=== PATIENT | female | born 1990 | race African-American/Black ===

== ENCOUNTER 2016-04-08 11:04 | Emergency (ER) | payer MEDICAID, OTHER ==
[~2016-04-08] VITALS: Ht 170.2 cm; Wt 150.0 kg
[~2016-04-08 11:04] MED LIST: CIPR-9 PO; CIPR0.3S LEFT EAR; IBUP-232 PO
[2016-04-08 11:06] VITALS: BP 165/83; PULSE 92; RESP 16; TEMP 98; O2SAT 98
[2016-04-08] MEDS ORDERED: CORT1SOL LEFT EAR (12:15)
--- NOTE | 2016-04-08 12:16 | PD ---
HPI Chief Complaint: ENT Complaint Time Seen by Provider: 12:15 Travel History International Travel<30 days: No Contact w/Intl Traveler<30days: No Traveled to known affect area: No History of Present Illness HPI 26-year-old female with history of chronic, recurrent left otitis externa presents to emergency department requesting a different antibiotic drop. Patient states that she gets her medications through the homeless: [facility] and the antibiotic previously prescribed, Ciprodex is over $200. Patient states she cannot afford this. She is requesting something $24 or less. She denies any pain at this time. States that she did see the nurse at the [facility] who stated that she should have this filled. Denies fever or chills. She has no symptoms to report. PFSH Past Medical History Asthma: Yes ( A CHILD) Bipolar Disorder: Yes Cancer: No Cardiovascular Problems: No Developmental Delay: No Diabetes: No Diminished Hearing: No Headaches: No Psychiatric: No Immunizations Current: Yes Seizures: No ?: Not LMP: 01/09/16 : 0 Para: 0 Miscarriage: 0 : 0 Social History Alcohol Use: Yes ([facility]) Tobacco Use: No Substance Use: No Allergies-Medications (Allergen,Severity, Reaction): Coded Allergies: No Known Allergies (Verified , 03/26/16) Reported Meds & Prescriptions Reported Meds & Active Scripts Active Cortisporin HC Otic Drops (Utaceres-Qwhddrjov-NN Otic Drops) 3.5-10,000-1 Mg- Units-% Soln 4 Drop LEFT EAR QID Ibuprofen 600 Mg Tab 600 Mg PO Q6H PRN Ciprodex Otic Drops (Ciprofloxacin-Dexamethasone Otic Drops) 0.3-0.1% Susp 4 Drop LEFT EAR BID Cipro (Ciprofloxacin HCl) 500 Mg Tab 500 Mg PO BID Review of Systems Except as stated in HPI: all other systems reviewed are Neg Physical Exam Narrative GENERAL: Well-nourished, well-developed male patient in no acute distress SKIN: Warm and dry. HEAD: Normocephalic. Traumatic. No mastoid tenderness EARS: Bilateral pinnae within normal limits. Patient has flaking and mild edema of the bilateral external canals, greater on the left than the right Bilateral tympanic membranes without erythema, dullness or perforation. EYES: No scleral icterus. No injection or drainage. ENT: Mucosa pink and moist. No erythema or exudates. No uvular edema. No uvular , palatal, or tonsillar deviation. Airway patent. Nasal turbinates appear normal without nasal blood, purulent drainage or septal hematoma. NECK: Supple, trachea midline. No JVD or lymphadenopathy. CARDIOVASCULAR: Regular rate and rhythm without murmurs, gallops, or rubs. RESPIRATORY: Breath sounds equal bilaterally. No accessory muscle use. Data Data Last Documented VS Vital Signs Date Time Temp Pulse Resp B/P Pulse Ox O2 Delivery O2 Flow Rate FiO2 04/08/16 11:06 98.0 92 16 165/83 98 MDM Medical Decision Making Medical Screen Exam Complete: Yes Emergency Medical Condition: Yes Medical Record Reviewed: Yes Differential Diagnosis Otitis externa versus otitis media versus recurrent otitis versus psoriasis versus dermatitis Narrative Course 26 year-old female presents to [facility] department requesting a different prescription for otitis externa that is affordable. Patient is given a prescription for Cortisporin otic. She is instructed to follow-up with primary care and return immediately with any acute worsening symptoms. Diagnosis Primary Impression: Chronic otitis externa of left ear Qualified Code: H60.62 - Chronic otitis externa of left ear, unspecified type Referrals: Ear / Nose / Throat Specialist Primary Care Physician Patient Instructions: General Instructions, Otitis Externa (ED) Additional Instructions: Avoid water submersion No foreign bodies in your ears Do not use Q-tips Return immediately to the emergency department with any acute worsening symptoms Med/Other Pt SpecificInfo: Prescription(s) given Scripts Pndwlfuq-Triviefvs-DL Otic Drops (Cortisporin HC Otic Drops)3.5-10,000-1 Mg- Units-% Soln4 Drop LEFT EAR QID #1 BOTTLE Ref 0 Prov:Mikki Curry 04/08/16 Disposition: 01 DISCHARGE HOME Condition: Stable Mikki Curry Apr 08, 2016 12:16
[2016-08-25] MEDS ORDERED: RISP0.5T2 PO (09:26)
[2016-08-25] MEDS ORDERED: TRAZ50TA12 PO (09:26)
[2016-09-01] MEDS ORDERED: GYNE3CRE VAGINAL (09:45)
[2016-09-14] MEDS ORDERED: CLOT1CRE23 VAGINAL (16:50)
== END 2016-04-08 12:42 | disposition home or self-care (01) ==
LOC: NETRI 11:04
DX: H60.62 Unspecified chronic otitis externa, left ear (principal); Z87.09 Personal history of other diseases of the respiratory system; Z86.59 Personal history of other mental and behavioral disorders
CPT/HCPCS: 99282

== ENCOUNTER 2016-05-06 08:42 | Emergency (ER) | payer OTHER ==
[~2016-05-06] VITALS: Ht 170.2 cm; Wt 155.0 kg
[~2016-05-06 08:42] MED LIST changes: +CORT1SOL LEFT EAR
[2016-05-06 08:44] VITALS: BP 130/72; PULSE 84; RESP 20; TEMP 98; O2SAT 95
[2016-05-06 10:30] VITALS: BP_SYST 103; BP_SYST 106; BP_SYST 95; BP_DIAS 54; BP_DIAS 58; BP_DIAS 59; RESP 18
--- NOTE | 2016-05-06 10:59 | PD ---
HPI . Lesion on her right ear and abdominal pain Chief Complaint: Specifications Checker Problem/Complaint Time Seen by Provider: 10:19 Travel History International Travel<30 days: No Contact w/Intl Traveler<30days: No Traveled to known affect area: No History of Present Illness HPI Patient presents with 2 complaints. The first is a lesion on her right ear. The second is some lower abdominal pain. She reports constipation. Is requesting a prescription for a laxative. She also states that she's been having a menstrual cycle for several months. [facility] Past Medical History Asthma: Yes ( A CHILD) Bipolar Disorder: Yes Cancer: No Cardiovascular Problems: No Developmental Delay: No Diabetes: No Diminished Hearing: No Headaches: No Psychiatric: Yes Immunizations Current: Yes Seizures: No Tetanus Vaccination: < 5 Years ?: Unknown LMP: 01/09/16 : 0 Para: 0 Miscarriage: 0 : 0 Past Surgical History Surgical History: No Previous Surgery Social History Alcohol Use: Yes ([facility]) Tobacco Use: No Substance Use: No Allergies-Medications (Allergen,Severity, Reaction): Coded Allergies: No Known Allergies (Verified , 05/06/16) Reported Meds & Prescriptions Reported Meds & Active Scripts Active No Active Prescriptions or Reported Medications Review of Systems Except as stated in HPI: all other systems reviewed are Neg General / Constitutional: No: Fever, Chills Gastrointestinal: Positive: Abdominal Pain, Constipation, No: Nausea, Vomiting , Diarrhea Genitourinary: Positive: Menorrhagia, Metorrhagia, Vaginal Bleeding Skin: Positive Lumps (on her right earlobe) Physical Exam Narrative GENERAL: This patient is smiling and using her cell phone and in no distress at all. SKIN: Warm and dry. She has a keloid on her right earlobe. HEAD: Atraumatic. Normocephalic. EYES: Pupils equal and round. ENT: No nasal bleeding or discharge. Mucous membranes pink and moist. NECK: Trachea midline. CARDIOVASCULAR: Regular rate and rhythm. RESPIRATORY: No accessory muscle use. GASTROINTESTINAL: Abdomen soft, non-tender, nondistended. MUSCULOSKELETAL: No obvious deformities. No edema. NEUROLOGICAL: Awake and alert. No obvious cranial nerve deficits. Motor grossly within normal limits. Normal speech. PSYCHIATRIC: Appropriate mood and affect; insight and judgment normal. Data Data Last Documented VS Vital Signs Date Time Temp Pulse Resp B/P Pulse Ox O2 Delivery O2 Flow Rate FiO2 05/06/16 10:30 78 18 95/58 103/54 106/59 05/06/16 08:44 98.0 95 Room Air Orders Ed Urine Pregnancytest Poc (05/06/16 10:20) Orthostatic Vital Signs (05/06/16 10:21) MDM Medical Decision Making Medical Screen Exam Complete: Yes Emergency Medical Condition: Yes Differential Diagnosis Differential diagnosis of abdominal pain includes but is not limited to gastritis, pancreatitis, hepatitis, gastroenteritis, gallbladder disease, constipation, urinary retention, UTI, peptic ulcer disease, diverticulitis or appendicitis Narrative Course Patient presents for evaluation of a lesion on her right earlobe and of abdominal pain. Her hCG is negative. She reports constipation. I will recommend that she take milk of magnesia. The lesion on her earlobe is a keloid. Diagnosis Primary Impression: Abdominal pain Qualified Code: R10.84 - Generalized abdominal pain Additional Impressions: Constipation Qualified Code: K59.00 - Constipation, unspecified constipation type Menometrorrhagia Keloid of skin Additional Instructions: Take milk of magnesia for constipation. Follow up with your primary care provider for all of your other complaints. Scripts No Active Prescriptions or Reported Meds Disposition: 01 DISCHARGE HOME Condition: Stable Jennifer Taylor MD May 06, 2016 10:59
[2016-05-06 11:05] VITALS: BP 106/60; TEMP 97.8
[2016-08-25] MEDS ORDERED: RISP0.5T2 PO (09:26)
[2016-08-25] MEDS ORDERED: TRAZ50TA12 PO (09:26)
[2016-09-01] MEDS ORDERED: GYNE3CRE VAGINAL (09:45)
[2016-09-14] MEDS ORDERED: CLOT1CRE23 VAGINAL (16:50)
== END 2016-05-06 11:05 | disposition home or self-care (01) ==
LOC: NEPB 08:42
DX: R10.84 Generalized abdominal pain (principal); L91.0 Hypertrophic scar; N92.1 Excessive and frequent menstruation with irregular cycle
CPT/HCPCS: 84703; 99283

== ENCOUNTER 2016-08-03 19:32 | Emergency (ER) | payer SELFPAY ==
[2016-08-03 19:34] VITALS: BP 147/69; PULSE 87; RESP 16; TEMP 98.7; O2SAT 99
--- NOTE | 2016-08-03 19:40 | PD ---
Physical Exam Time Seen by Provider: 19:40 Narrative 26 y/o female presents for evaluation of a "bump" on her R ear for a few weeks. Vital signs reviewed. Seen at triage desk. Awaiting bed placement. Data Data Last Documented VS Vital Signs Date Time Temp Pulse Resp B/P Pulse Ox O2 Delivery O2 Flow Rate FiO2 08/03/16 19:34 98.7 87 16 147/69 99 Room Air MDM Medical Record Reviewed: Yes Supervised Visit with ELIER: No Scripts No Active Prescriptions or Reported Meds Tj Bowman August 03, 2016 19:40
--- NOTE | 2016-08-03 20:01 | PD ---
HPI Chief Complaint: Skin Problem Time Seen by Provider: 19:58 Travel History International Travel<30 days: No Contact w/Intl Traveler<30days: No Traveled to known affect area: No History of Present Illness HPI 26-year-old black female presents emergency Department with complains of a lump to the right ear with some discoloration. She states that is irritating her. She's noticed this over the last several weeks. She denies any trauma. No fever chills. No drainage. History Past Medical Histgory Narrative Medical Bipolar, depressed Tetanus Vaccination: < 5 Years LMP: 07/15/16 Hx Cancer: No Social History Alcohol Use: Yes (OCC) Tobacco Use: No Allergies-Medications (Allergen,Severity, Reaction): Coded Allergies: No Known Allergies (Verified , 08/03/16) Reported Meds & Prescriptions Reported Meds & Active Scripts Active Review of Systems Except as stated in HPI: all other systems reviewed are Neg Physical Exam Narrative GENERAL: This is a well-nourished, well-developed patient, in no apparent distress. SKIN: No rashes,warm and dry. Patient's right earlobe has a keloid on the pinna. There is a slight area of ecchymosis versus pressure necrosis. There is no signs of any wound infection. HEAD: Atraumatic. Normocephalic. EYES: PERRL, EOMI, no discharge or injection. No scleral icterus. EARS: Clear NOSE: Nasal turbinates appear normal. THROAT: Mucosa pink and moist. Airway patent. NECK: Trachea midline. supple, moves head freely. LUNGS: Clear to auscultation. CV: Regular in rhythm. ABDOMEN: Soft nontender. EXT: No clubbing cyanosis or edema. Data Data Last Documented VS Vital Signs Date Time Temp Pulse Resp B/P Pulse Ox O2 Delivery O2 Flow Rate FiO2 08/03/16 19:34 98.7 87 16 147/69 99 Room Air MDM Medical Screen Exam Complete: Yes Emergency Medical Condition: No Differential Diagnosis MDM: High Differential diagnoses: Abscess, folliculitis, cellulitis, lymphangitis, abrasion, contact dermatitis, keloid Narrative Course A medical screening exam was performed: At the time of evaluation the presenting medical condition was determined not to be of an emergent nature. The patient was given the option of receiving additional care, but declined. Patient was given options for additional community resources from which to obtain care. The Patient Has Been advised to seek medical attention for their presenting complaint. The patient has been advised to return to the ER at any time if an emergent condition develops. Primary Impression: Encounter for medical screening examination Condition: Bereket Jones August 03, 2016 20:01
[2016-08-25] MEDS ORDERED: RISP0.5T2 PO (09:26)
[2016-08-25] MEDS ORDERED: TRAZ50TA12 PO (09:26)
[2016-09-01] MEDS ORDERED: GYNE3CRE VAGINAL (09:45)
[2016-09-14] MEDS ORDERED: CLOT1CRE23 VAGINAL (16:50)
== END 2016-08-03 20:50 | disposition left against medical advice (07) ==
LOC: NEPK 19:32
DX: H93.8X1 Other specified disorders of right ear (principal)
CPT/HCPCS: 99281

== ENCOUNTER 2017-03-29 09:02 | Emergency (ER) | payer SELFPAY ==
[~2017-03-29] VITALS: Ht 167.6 cm; Wt 160.0 kg
[~2017-03-29 09:02] MED LIST changes: -CIPR-9 PO; -CIPR0.3S LEFT EAR; +CLOT1CRE23 VAGINAL; -CORT1SOL LEFT EAR; -IBUP-232 PO; +RISP0.5T2 PO; +TRAZ50TA12 PO
[2017-03-29 09:04] VITALS: BP_SYST 139; BP_SYST 179; BP_DIAS 106; BP_DIAS 94; PULSE 78; PULSE 98; RESP 14; RESP 16; TEMP 100.1; TEMP 98; O2SAT 97; O2SAT 99
--- NOTE | 2017-03-29 09:19 | PD ---
HPI Chief Complaint: Psychiatric Symptoms Time Seen by Provider: 09:08 Travel History International Travel<30 days: No Contact w/Intl Traveler<30days: No Traveled to known affect area: No History of Present Illness HPI 27-year-old female presents to the emergency department for psychiatric evaluation. Patient is requesting refills of her benztropine, Risperdal, trazodone. She states she has been off her psychiatric medications for approximately 2 months. The patient states that since being off her medications , she has had thoughts of hurting herself, but no plan. She also reports hearing voices, will not elaborate on this. She reports history of bipolar disorder and anxiety. She denies any other medical problems or medical complaints. Patient denies . When she is on her medications, her symptoms are improved. Being off her medications will worsen her symptoms. Moderate severity. No pain. PFSH Past Medical History Asthma: Yes ( A CHILD) Bipolar Disorder: Yes Cancer: No Cardiovascular Problems: No Developmental Delay: No Diabetes: No Diminished Hearing: No Headaches: No Psychiatric: Yes Immunizations Current: Yes Seizures: No ?: Not : 0 Para: 0 Miscarriage: 0 : 0 Social History Alcohol Use: Yes (OCC) Tobacco Use: No Substance Use: No Allergies-Medications (Allergen,Severity, Reaction): Coded Allergies: No Known Allergies (Verified Adverse Reaction, Unknown, 03/29/17) Reported Meds & Prescriptions Reported Meds & Active Scripts Active Risperidone 1 Mg Tab 1 Mg PO HS 14 Days Benztropine (Benztropine Mesylate) 0.5 Mg Tab 0.5 Mg PO HS 14 Days Trazodone (Trazodone HCl) 50 Mg Tab 50 Mg PO HS 14 Days Reported Benztropine (Benztropine Mesylate) 0.5 Mg Tab 0.5 Mg PO BID Trazodone (Trazodone HCl) 50 Mg Tab 50 Mg PO HS Risperidone 0.5 Mg Tab 0.5 Mg PO DAILY Review of Systems Except as stated in HPI: all other systems reviewed are Neg Physical Exam Narrative GENERAL: Well-nourished, well-developed female patient ambulatory, Afebrile. SKIN: Focused skin assessment warm/dry. HEAD: Normocephalic. Atraumatic. EYES: No scleral icterus. No injection or drainage. NECK: Supple, trachea midline. No JVD or lymphadenopathy. CARDIOVASCULAR: Regular rate and rhythm without murmurs, gallops, or rubs. RESPIRATORY: Breath sounds equal bilaterally. No accessory muscle use. Lungs sounds are clear to auscultation. GASTROINTESTINAL: Abdomen soft, non-tender, nondistended. MUSCULOSKELETAL: No cyanosis, or edema. PSYCHIATRIC: No delusional thought processes. No hallucinations. Data Data Last Documented VS Vital Signs Date Time Temp Pulse Resp B/P (MAP) Pulse Ox O2 Delivery O2 Flow Rate FiO2 03/29/17 13:07 97.5 70 18 114/57 (76) 98 Room Air Orders Orders Complete Blood Count With Diff (03/29/17 09:15) Comprehensive Metabolic Panel (03/29/17 09:15) Ed Urine Pregnancytest Poc (03/29/17 09:15) Psych Screen (03/29/17 09:15) Drug Screen, Random Urine (03/29/17 09:15) Alcohol (Ethanol) (03/29/17 09:15) Labs Laboratory Tests Test 03/29/17 09:25 03/29/17 09:30 Urine Opiates Screen NEG Urine Barbiturates Screen NEG Urine Amphetamines Screen NEG Urine Benzodiazepines Screen NEG Urine Cocaine Screen NEG Urine Cannabinoids Screen NEG White Blood Count 12.8 TH/MM3 Red Blood Count 5.50 MIL/MM3 Hemoglobin 14.8 GM/DL Hematocrit 44.1 % Mean Corpuscular Volume 80.2 FL Mean Corpuscular Hemoglobin 27.0 PG Mean Corpuscular Hemoglobin Concent 33.6 % Red Cell Distribution Width 13.1 % Platelet Count 293 TH/MM3 Mean Platelet Volume 8.8 FL Neutrophils (%) (Auto) 76.3 % Lymphocytes (%) (Auto) 17.0 % Monocytes (%) (Auto) 5.7 % Eosinophils (%) (Auto) 0.7 % Basophils (%) (Auto) 0.3 % Neutrophils # (Auto) 9.8 TH/MM3 Lymphocytes # (Auto) 2.2 TH/MM3 Monocytes # (Auto) 0.7 TH/MM3 Eosinophils # (Auto) 0.1 TH/MM3 Basophils # (Auto) 0.0 TH/MM3 CBC Comment DIFF FINAL Differential Comment Blood Urea Nitrogen 7 MG/DL Creatinine 0.84 MG/DL Random Glucose 80 MG/DL Total Protein 8.8 GM/DL Albumin 3.8 GM/DL Calcium Level 9.1 MG/DL Alkaline Phosphatase 88 U/L Aspartate Amino Transf (AST/SGOT) 51 U/L Alanine Aminotransferase (ALT/SGPT) 38 U/L Total Bilirubin 0.6 MG/DL Sodium Level 138 MEQ/L Potassium Level 5.4 MEQ/L Chloride Level 108 MEQ/L Carbon Dioxide Level 22.3 MEQ/L Anion Gap 8 MEQ/L Estimat Glomerular Filtration Rate 99 ML/MIN Ethyl Alcohol Level LESS THAN 3 MG/DL MDM Medical Decision Making Medical Screen Exam Complete: Yes Emergency Medical Condition: Yes Medical Record Reviewed: Yes Differential Diagnosis Bipolar disorder versus anxiety versus depression versus medication refill Narrative Course 27-year-old female presents to the emergency department requesting her psychiatric medications, stating she has been off of them for 2 months. She also reports thoughts of harming herself and hearing voices for the past 2 months. CBC, CMP, alcohol level, urine drug screen, urine test are ordered and pending. CBC shows leukocytosis 12.8. CMP shows potassium 5.4, slightly elevated AST of 51. Alcohol level is less than 3. UDS is negative. UPT is negative. Patient is medically cleared for psychiatric screening and disposition. Mental health screening discussed with the patient. Psychiatric screen ordered. 1633 - patient was seen by our psychiatric nurse practitioner, Jessi, and refills of her medications were given. Psychiatric nurse practitioner states she is stable for discharge for outpatient follow-up. Diagnosis Primary Impression: Depression Qualified Codes: F32.9 - Major depressive disorder, single episode, unspecified Referrals: Psychiatrist Patient Instructions: Depression (ED), General Instructions Additional Instructions: Follow-up with psychiatrist. Return to the emergency department for any acute worsening of symptoms. Med/Other Pt SpecificInfo: Prescription(s) given Scripts Risperidone (Risperidone) 1 Mg Tab 1 MG PO HS for Agitation for 14 Days, #14 TAB 0 Refills Prov: Peacock,Jessi Tabitha Proctor [employer] 03/29/17 Benztropine (Benztropine) 0.5 Mg Tab 0.5 MG PO HS for side effects for 14 Days, #14 TAB 0 Refills Prov: Peacock,Jessi Tabitha Proctor [employer] 03/29/17 Trazodone (Trazodone) 50 Mg Tab 50 MG PO HS for Control Depression for 14 Days, #14 TAB 0 Refills Prov: Jessi Peacock 03/29/17 Disposition: 01 DISCHARGE HOME Condition: Stable Lauren Cavazos Mar 29, 2017 09:19
[2017-03-29] MEDS ORDERED: BENZ0.5T PO ×2 (09:23→16:12)
[2017-03-29 10:06] LABS: AUTOMATED NEUTROPHIL # 9.8 TH/MM3 (1.8-7.7); BASOPHIL % 0.3 % (0.0-2.0); EOSINOPHIL # 0.1 TH/MM3 (0-0.4); EOSINOPHIL % 0.7 % (0.0-4.0); HEMATOCRIT 44.1 % (35.0-46.0); HEMOGLOBIN 14.8 GM/DL (11.6-15.3); LYMPHOCYTE # 2.2 TH/MM3 (1.0-4.8); MEAN CELL VOLUME 80.2 FL (80.0-100.0); MEAN CORPUSCULAR HGB CONC 33.6 % (32.0-36.0); MEAN PLATELET VOLUME 8.8 FL (7.0-11.0); MONO % 5.7 % (0.0-8.0); MONOCYTE # 0.7 TH/MM3 (0-0.9); NEUT % 76.3 % (16.0-70.0); PLATELET COUNT 293 TH/MM3 (150-450); RED CELL DISTRIBUTION WIDTH 13.1 % (11.6-17.2); WHITE BLOOD COUNT 12.8 TH/MM3 (4.0-11.0)
[2017-03-29 10:13] LABS: ALBUMIN 3.8 GM/DL (3.4-5.0); AST (GOT) 51 U/L (15-37); BICARBONATE 22.3 MEQ/L (21.0-32.0); BLOOD UREA NITROGEN 7 MG/DL (7-18); CALCIUM 9.1 MG/DL (8.5-10.1); CHLORIDE 108 MEQ/L (98-107); CREATININE 0.84 MG/DL (0.50-1.00); GLOMERULAR FILTRATION RATE 99 ML/MIN (>89); GLUCOSE,RANDOM 80 MG/DL (74-106); SODIUM (NA) 138 MEQ/L (136-145)
[2017-03-29 10:14] LABS: ALT (GPT) 38 U/L (10-53)
[2017-03-29 10:16] LABS: ALKALINE PHOSPHATASE 88 U/L (45-117); TOTAL BILIRUBIN ADULT 0.6 MG/DL (0.2-1.0); TOTAL PROTEIN 8.8 GM/DL (6.4-8.2)
[2017-03-29 12:56] VITALS: BP 145/69; PULSE 80; RESP 18; O2SAT 98
[2017-03-29 13:07] VITALS: BP 114/57; PULSE 70; RESP 18; TEMP 97.5; O2SAT 98
--- NOTE | 2017-03-29 16:09 | PD ---
History of Present Illness Chief Complaint: Psychiatric Symptoms Time Seen by Provider: 16:00 Travel History International Travel<30 Days: No Contact w/Intl Traveler<30days: No Known affected area: No Legal Status Legal Status: Voluntary History of Present Illness: History of Present Illness HPI 27-year-old female with reported history of bipolar disorder, depressive disorder, PTSD who presents to the emergency department under a voluntary status for psychiatric evaluation. Patient reports that she has been out of medication for the past 2 months and is requesting refills of her benztropine, Risperdal, trazodone. The patient states that since being off her medications , she has had thoughts of hurting herself, but no plan. She also reports seeing shadows. Electronic medical record is review. Her last psychiatric hospitalization was at [facility] in 2014. Patient denies any substance abuse and current toxicology is negative. Patient is seen in J pod. She is alert, oriented and casually dressed. Patient is cooperative. Speech is clear and logical. She does not appear to be responding to internal stimuli although she does report seeing shadows. She denies that she is currently hearing any voices although she did report auditory hallucinations to the ED provider. Patient reports that she wants to get back on her medication and that she went to [facility] today but that they were closed so she decided to present to the hospital for a refill. Patient denies any suicidal or homicidal ideation. She does report feeling anxious and attributes this to being off her medication. PFSH Past Medical History Asthma: Yes ( A CHILD) Bipolar Disorder: Yes Cancer: No Cardiovascular Problems: No Developmental Delay: No Diabetes: No Diminished Hearing: No Headaches: No Psychiatric: Yes Immunizations Current: Yes Seizures: No Tetanus Vaccination: < 5 Years Influenza Vaccination: No ?: Not LMP: 12-1-17 : 0 Para: 0 Miscarriage: 0 : 0 Past Surgical History Surgical History: No Previous Surgery Psychiatric History Psychiatric History Hx Psychiatric Treatment: Has been treated for depression, anxiety. [facility] but has not been there for several months. History of Inpatient Treatment: Yes ([facility] in 2015. ) Guns or firearms in home: No Social History Single female who lives her grandmother. Currently is employed. She also receives Social Security disability. Hx Alcohol Use: Yes (OCC) Hx Tobacco Use: No Hx Substance Use: No Hx of Substance Use Treatment: No Family Psychiatric History Negative Allergies-Medications (Allergen,Severity, Reaction): Coded Allergies: No Known Allergies (Verified Adverse Reaction, Unknown, 03/29/17) Reported Meds & Prescriptions Reported Meds & Active Scripts Active Reported Benztropine (Benztropine Mesylate) 0.5 Mg Tab 0.5 Mg PO BID Trazodone (Trazodone HCl) 50 Mg Tab 50 Mg PO HS Risperidone 0.5 Mg Tab 0.5 Mg PO DAILY Review of Systems Psychiatric: COMPLAINS OF: Anxiety, Hallucinations Except as stated in HPI: all other systems reviewed are Neg Mental Status Examination Appearance: Appropriate (In hospital gown) Consciousness: Alert Orientation: x4 Motor Activity: Normal gait Speech: Unremarkable Language: Adequate Fund of Knowledge: Adequate Attention and Concentration: Adequate Memory: Unremarkable Mood: Appropriate Affect: Appropriate Thought Process & Associations: Intact Thought Content: Appropriate Hallucination Type: None Delusion Type: None Suicidal Ideation: No Suicidal Plan: No Suicidal Intention: No Homicidal Ideation: No Homicidal Plan: No Homicidal Intention: No Insight: Fair Judgment: Adequate MDM Medical Decision Making Medical Record Reviewed: Yes Assessment/Plan 27-year-old female with reported history of anxiety, bipolar disorder who presents to the emergency department requesting a refill on her psychiatric medications. Patient reports that she stopped taking her medications several months ago and now is experiencing some anxiety as well as visual hallucination. She attempted to get a refill from [facility] this morning but their offices were closed so she presented to our ED. Patient has no psychosis at the time and no suicidal or homicidal ideation. She agrees to follow up with Bartolo Toure in the morning for outpatient care. In the meantime I will provide her with her reported psychiatric medications for 14 days. She is provided psychoeducation. Psychiatrically clear for discharge from ED. Orders Orders Complete Blood Count With Diff (03/29/17 09:15) Comprehensive Metabolic Panel (03/29/17 09:15) Ed Urine Pregnancytest Poc (03/29/17 09:15) Psych Screen (03/29/17 09:15) Drug Screen, Random Urine (03/29/17 09:15) Alcohol (Ethanol) (03/29/17 09:15) Results Vital Signs Date Time Temp Pulse Resp B/P (MAP) Pulse Ox O2 Delivery O2 Flow Rate FiO2 03/29/17 13:07 97.5 70 18 114/57 (76) 98 Room Air 03/29/17 12:56 03/29/17 12:56 80 18 145/69 (94) 98 Room Air 03/29/17 09:15 82 20 03/29/17 09:04 98.0 78 14 139/94 (109) 99 Laboratory Tests Test 03/29/17 09:25 03/29/17 09:30 Urine Opiates Screen NEG Urine Barbiturates Screen NEG Urine Amphetamines Screen NEG Urine Benzodiazepines Screen NEG Urine Cocaine Screen NEG Urine Cannabinoids Screen NEG White Blood Count 12.8 Red Blood Count 5.50 Hemoglobin 14.8 Hematocrit 44.1 Mean Corpuscular Volume 80.2 Mean Corpuscular Hemoglobin 27.0 Mean Corpuscular Hemoglobin Concent 33.6 Red Cell Distribution Width 13.1 Platelet Count 293 Mean Platelet Volume 8.8 Neutrophils (%) (Auto) 76.3 Lymphocytes (%) (Auto) 17.0 Monocytes (%) (Auto) 5.7 Eosinophils (%) (Auto) 0.7 Basophils (%) (Auto) 0.3 Neutrophils # (Auto) 9.8 Lymphocytes # (Auto) 2.2 Monocytes # (Auto) 0.7 Eosinophils # (Auto) 0.1 Basophils # (Auto) 0.0 CBC Comment DIFF FINAL Differential Comment Blood Urea Nitrogen 7 Creatinine 0.84 Random Glucose 80 Total Protein 8.8 Albumin 3.8 Calcium Level 9.1 Alkaline Phosphatase 88 Aspartate Amino Transf (AST/SGOT) 51 Alanine Aminotransferase (ALT/SGPT) 38 Total Bilirubin 0.6 Sodium Level 138 Potassium Level 5.4 Chloride Level 108 Carbon Dioxide Level 22.3 Anion Gap 8 Estimat Glomerular Filtration Rate 99 Ethyl Alcohol Level LESS THAN 3 Diagnosis Primary Impression: Depression Additional Impression: Bipolar disorder Psychiatrically Cleared: Yes Med/ Other Pt Specific Info: Prescription(s) given Prescriptions Risperidone (Risperidone) 1 Mg Tab 1 MG PO HS for Agitation for 14 Days, #14 TAB 0 Refills Prov: Peacock,Jessi Tabitha Proctor [employer] 03/29/17 Benztropine (Benztropine) 0.5 Mg Tab 0.5 MG PO HS for side effects for 14 Days, #14 TAB 0 Refills Prov: Jessi Peacock [facility] 03/29/17 Trazodone (Trazodone) 50 Mg Tab 50 MG PO HS for Control Depression for 14 Days, #14 TAB 0 Refills Prov: Jessi Peacock [facility] 03/29/17 Disposition: 01 DISCHARGE HOME Condition: Stable Problem Qualifiers Primary Impression: Depression Qualified Codes: F32.9 - Major depressive disorder, single episode, unspecified Additional Impression: Bipolar disorder Qualified Codes: F31.31 - Bipolar disorder, current episode depressed, mild Jessi Peacock [facility] Mar 29, 2017 16:09
[2017-03-29] MEDS ORDERED: TRAZ50TA12 PO (16:10)
[2017-03-29] MEDS ORDERED: RISP1TAB2 PO (16:14)
[2017-04-07] MEDS ORDERED: BENZ0.5T PO (09:28)
[2017-04-07] MEDS ORDERED: RISP1TAB2 PO (09:28)
[2017-04-07] MEDS ORDERED: TRAZ50TA12 PO (09:28)
[2017-04-07] MEDS ORDERED: CLOT45CR VAGINAL (09:34)
[2017-04-07] MEDS ORDERED: VITA500012 PO (09:35)
== END 2017-03-29 17:03 | disposition home or self-care (01) ==
LOC: NEPD 09:02 → NEPJ 17:03
DX: F31.31 Bipolar disorder, current episode depressed, mild (principal); Z79.899 Other long term (current) drug therapy
CPT/HCPCS: 80053; 80307; 84703; 85025; 99283

== ENCOUNTER 2017-04-09 20:34 | Inpatient (IN) | payer MEDICARE, OTHER ==
[~2017-04-09] VITALS: Ht 170.2 cm; Wt 152.7 kg
[~2017-04-09 20:34] MED LIST changes: +BENZ0.5T PO; -CLOT1CRE23 VAGINAL; +CLOT45CR VAGINAL; -RISP0.5T2 PO; +RISP1TAB2 PO; +VITA500012 PO
[2017-04-09 20:50] VITALS: BP 150/69; PULSE 115; RESP 16; TEMP 99.2; O2SAT 97
[2017-04-09 21:32] LABS: AUTOMATED NEUTROPHIL # 10.7 TH/MM3 (1.8-7.7); BASOPHIL # 0.1 TH/MM3 (0-0.2); BASOPHIL % 0.4 % (0.0-2.0); EOSINOPHIL % 0.2 % (0.0-4.0); HEMATOCRIT 36.9 % (35.0-46.0); HEMOGLOBIN 12.8 GM/DL (11.6-15.3); LYMPH % 17.5 % (9.0-44.0); LYMPHOCYTE # 2.5 TH/MM3 (1.0-4.8); MEAN CELL VOLUME 77.8 FL (80.0-100.0); MEAN CORPUSCULAR HEMOGLOBIN 26.9 PG (27.0-34.0); MEAN CORPUSCULAR HGB CONC 34.6 % (32.0-36.0); MEAN PLATELET VOLUME 8.8 FL (7.0-11.0); MONO % 7.2 % (0.0-8.0); NEUT % 74.7 % (16.0-70.0); PLATELET COUNT 284 TH/MM3 (150-450); RED BLOOD COUNT 4.74 MIL/MM3 (4.00-5.30); RED CELL DISTRIBUTION WIDTH 12.8 % (11.6-17.2); WHITE BLOOD COUNT 14.4 TH/MM3 (4.0-11.0)
--- NOTE | 2017-04-09 21:34 | PD ---
HPI Chief Complaint: Psychiatric Symptoms Time Seen by Provider: 21:18 Travel History International Travel<30 days: No Contact w/Intl Traveler<30days: No Traveled to known affect area: No History of Present Illness HPI 27 year old female with history of bipolar disorder presents to emergency department under High act for psychiatric evaluation following an argument with her grandmother and stepmother. Patient made suicidal threats. Currently is denying any suicidal homicidal ideations. Denies any recent illnesses, fever , chills. She has no other symptoms to report. PFSH Past Medical History Asthma: Yes ( A CHILD) Bipolar Disorder: Yes Cancer: No Cardiovascular Problems: No Developmental Delay: No Diabetes: No Diminished Hearing: No Headaches: No Psychiatric: Yes Immunizations Current: Yes Seizures: No ?: Not : 0 Para: 0 Miscarriage: 0 : 0 Social History Alcohol Use: Yes (OCC) Tobacco Use: No Substance Use: No Allergies-Medications (Allergen,Severity, Reaction): Coded Allergies: No Known Allergies (Verified Adverse Reaction, Unknown, 04/09/17) Reported Meds & Prescriptions Reported Meds & Active Scripts Active Keflex (Cephalexin) 500 Mg Cap 500 Mg PO Q12H 7 Days Ergocalciferol 50,000 Unit Cap 50,000 Units PO Q7D [id number] (Clotrimazole) 1 % Cream.appl 1 Applic VAGINAL HS Risperidone 1 Mg Tab 1 Mg PO HS must see Ron Riddle for next refill Trazodone (Trazodone HCl) 50 Mg Tab 50 Mg PO HS must see ron riddle for next refill Benztropine (Benztropine Mesylate) 0.5 Mg Tab 0.5 Mg PO HS must follow up with Ron Riddle for next refill Review of Systems Except as stated in HPI: all other systems reviewed are Neg Physical Exam Narrative GENERAL: Well-nourished, well-developed female patient in no acute distress. SKIN: Focused skin assessment warm/dry. HEAD: Normocephalic. EYES: No scleral icterus. No injection or drainage. NECK: Supple, trachea midline. No JVD or lymphadenopathy. CARDIOVASCULAR: Tachycardic rate and rhythm without murmurs, gallops, or rubs. RESPIRATORY: Breath sounds equal bilaterally. No accessory muscle use. GASTROINTESTINAL: Abdomen soft, non-tender, nondistended. MUSCULOSKELETAL: No cyanosis, or edema. BACK: Nontender without obvious deformity. No CVA tenderness. Data Data Last Documented VS Vital Signs Date Time Temp Pulse Resp B/P (MAP) Pulse Ox O2 Delivery O2 Flow Rate FiO2 04/10/17 03:17 04/10/17 02:00 98.7 103 17 100 Room Air Orders Orders Psych Screen (04/09/17 21:07) Basic Metabolic Panel (Bmp) (04/09/17 21:07) Complete Blood Count With Diff (04/09/17 21:07) Drug Screen, Random Urine (04/09/17 21:07) Tylenol (Acetaminophen) (04/09/17 21:07) Alcohol (Ethanol) (04/09/17 21:07) Salicylates (Aspirin) (04/09/17 21:10) Ed Urine Pregnancytest Poc (04/10/17 00:02) Urinalysis - C+S If Indicated (04/10/17 00:17) Urine Culture (04/10/17 00:25) Cephalexin (Keflex) (04/10/17 01:15) Labs Laboratory Tests Test 04/09/17 21:15 04/10/17 00:25 White Blood Count 14.4 TH/MM3 Red Blood Count 4.74 MIL/MM3 Hemoglobin 12.8 GM/DL Hematocrit 36.9 % Mean Corpuscular Volume 77.8 FL Mean Corpuscular Hemoglobin 26.9 PG Mean Corpuscular Hemoglobin Concent 34.6 % Red Cell Distribution Width 12.8 % Platelet Count 284 TH/MM3 Mean Platelet Volume 8.8 FL Neutrophils (%) (Auto) 74.7 % Lymphocytes (%) (Auto) 17.5 % Monocytes (%) (Auto) 7.2 % Eosinophils (%) (Auto) 0.2 % Basophils (%) (Auto) 0.4 % Neutrophils # (Auto) 10.7 TH/MM3 Lymphocytes # (Auto) 2.5 TH/MM3 Monocytes # (Auto) 1.0 TH/MM3 Eosinophils # (Auto) 0.0 TH/MM3 Basophils # (Auto) 0.1 TH/MM3 CBC Comment DIFF FINAL Differential Comment Blood Urea Nitrogen 9 MG/DL Creatinine 0.87 MG/DL Random Glucose 98 MG/DL Calcium Level 8.9 MG/DL Sodium Level 140 MEQ/L Potassium Level 3.2 MEQ/L Chloride Level 104 MEQ/L Carbon Dioxide Level 22.7 MEQ/L Anion Gap 13 MEQ/L Estimat Glomerular Filtration Rate 95 ML/MIN Salicylates Level LESS THAN 1.7 MG/DL Urine Opiates Screen NEG Acetaminophen Level LESS THAN 2.0 MCG/ML Urine Barbiturates Screen NEG Urine Amphetamines Screen NEG Urine Benzodiazepines Screen NEG Urine Cocaine Screen NEG Urine Cannabinoids Screen NEG Ethyl Alcohol Level LESS THAN 3 MG/DL Urine Color YELLOW Urine Turbidity CLOUDY Urine pH 6.0 Urine Specific Ta[place] 1.032 Urine Protein 30 mg/dL Urine Glucose (UA) NEG mg/dL Urine Ketones 150 mg/dL Urine Occult Blood NEG Urine Nitrite NEG Urine Bilirubin SMALL Urine Urobilinogen 4.0 MG/DL Urine Leukocyte Esterase LARGE Urine RBC 1 /hpf Urine WBC 9 /hpf Urine Squamous Epithelial Cells 14 /hpf Urine Bacteria MANY /hpf Urine Mucus FEW /lpf Microscopic Urinalysis Comment CULTURE INDICATED MDM Medical Decision Making Medical Screen Exam Complete: Yes Emergency Medical Condition: Yes Medical Record Reviewed: Yes Differential Diagnosis Mood disorder versus personality disorder versus adjustment reaction disorder Narrative Course 27 old female presents to emergency department under High act for psychiatric evaluation. Patient appears without distress. Vital signs are stable. He has a mild leukocytosis, and urinalysis is consistent with UTI. Patient will be started on Keflex. She is medically cleared at this time to undergo psychiatric screening for further evaluation and disposition. Mental health screening discussed with the patient. Psychiatric screen ordered. Diagnosis Primary Impression: Schizoaffective disorder Qualified Codes: F25.9 - Schizoaffective disorder, unspecified Additional Impression: UTI (urinary tract infection) Qualified Codes: N30.01 - Acute cystitis with hematuria Med/Other Pt SpecificInfo: Prescription(s) given Scripts Cephalexin (Keflex) 500 Mg Cap 500 MG PO Q12H for Infection for 7 Days, #14 CAP 0 Refills Prov: Mikki Curry 04/10/17 Disposition: 65 DISC TO PSYCH CARE FACILITY Condition: Stable Mikki Curry Apr 09, 2017 21:34
[2017-04-09 21:51] LABS: BICARBONATE 22.7 MEQ/L (21.0-32.0); BLOOD UREA NITROGEN 9 MG/DL (7-18); CALCIUM 8.9 MG/DL (8.5-10.1); CHLORIDE 104 MEQ/L (98-107); CREATININE 0.87 MG/DL (0.50-1.00); GLOMERULAR FILTRATION RATE 95 ML/MIN (>89); GLUCOSE,RANDOM 98 MG/DL (74-106); SODIUM (NA) 140 MEQ/L (136-145)
[2017-04-09 22:00] LABS: ACETAMINOPHEN LESS THAN 2.0 MCG/ML (10.0-30.0)
[2017-04-10 00:46] LABS: BACTERIA, URINE MANY /hpf; BILIRUBIN, URINE SMALL (NEG); BLOOD, URINE NEG (NEG); GLUCOSE,URINE NEG (NEG); KETONE, URINE 150 mg/dL (NEG); MUCUS URINE FEW /lpf (OCC); NITRITE,URINE NEG (NEG); SQUAMOUS EPITHELIAL CELL URINE 14 /hpf (0-5); URINE COLOR YELLOW (YELLW/STRAW); URINE LEUKOCYTE ESTERASE LARGE (NEG)
[2017-04-10] MEDS ORDERED: CEPHALEXIN MONOHYDRATE 500 MG CAP PO ONE (01:15)
[2017-04-10 02:00] VITALS: BP 142/78; PULSE 103; RESP 17; TEMP 98.7; O2SAT 100
[2017-04-10] MEDS ORDERED: CEPH-460 PO (03:21)
[2017-04-10 06:58] VITALS: BP 106/54; PULSE 99; RESP 17; TEMP 98.3; O2SAT 99
[2017-04-10 14:21] VITALS: BP 149/75; PULSE 82; RESP 20; TEMP 97.6; O2SAT 92
[2017-04-10] MEDS ORDERED: ALUMINUM/MAGNESIUM/SIMETH 30 ML CUP PO PRN (19:45)
[2017-04-10] MEDS ORDERED: diphenhydrAMINE HCL 50 MG/ML VIAL IM PRN (19:45)
[2017-04-10] MEDS ORDERED: traZODone HCL 50 MG TAB PO PRN (19:45)
[2017-04-10] MEDS ORDERED: LORazepam 2 MG/ML VIAL IM PRN (19:45)
[2017-04-10] MEDS ORDERED: ACETAMINOPHEN 325 MG TAB PO PRN (19:45)
[2017-04-10] MEDS ORDERED: diphenhydrAMINE HCL 50 MG CAP PO PRN (19:45)
[2017-04-10] MEDS ORDERED: MAGNESIUM HYDROXIDE SUSP 30 ML CUP PO PRN (19:45)
[2017-04-10] MEDS ORDERED: risperiDONE 1 MG TAB PO SCH (21:00)
[2017-04-10] MEDS: CEPHALEXIN MONOHYDRATE 500 MG CAP PO SCH (21:00)
[2017-04-10] MEDS ORDERED: BENZTROPINE MESYLATE 1 MG TAB PO SCH (21:00)
[2017-04-10 22:09] VITALS: BP 135/65; PULSE 84; RESP 18
[2017-04-11 00:05] VITALS: BP 138/83; PULSE 83; RESP 18; TEMP 96; O2SAT 99
[2017-04-11 05:45] VITALS: BP 117/68; PULSE 86; RESP 18; TEMP 97.3; O2SAT 95
[2017-04-11] MEDS: CEPHALEXIN MONOHYDRATE 500 MG CAP PO SCH (09:08)
[2017-04-11] MEDS ORDERED: BENZTROPINE MESYLATE 1 MG TAB PO PRN (10:00)
[2017-04-11] MEDS ORDERED: BENZTROPINE MESYLATE 2 MG/2 ML VIAL IM PRN (10:00)
--- NOTE | 2017-04-11 12:08 | MH ---
cc: ERNESTO PINA DATE OF ADMISSION 04/10/2017 ADMISSION DIAGNOSES 1. Adjustment disorder with disturbance of emotions and conduct, F43.25 2. Schizoaffective disorder, bipolar type, F25.0 LEGAL STATUS The patient is presently capacitated to consent for admission and for medications/treatment. Voluntary status. CHIEF COMPLAINT: Psychosis HISTORY OF PRESENT ILLNESS Ms. Shen is a 27-year-old female with a chart history of schizoaffective disorder and bipolar disorder who presents under a High ACT by law enforcement. High ACT alleges that the patient has been nonadherent with psychotropic medications and has been acting out aggressively towards her family, in particular, yelling at her mother and grandmother and threatening to do harm to them. Reviewing the electronic medical record, I note the patient was admitted most recently here in January of [address] Rich. The patient seen and examined with nurse. Chart reviewed. Case discussed with nursing staff. On my examination today, the patient says that the argument with her grandmother was over getting the car so that she could go poultry picker her medications. The patient's grandmother reportedly declined and an argument ensued. The patient thinks that this argument is unrelated to her psychiatric issues, although she does think that there are active psychiatric issues that would benefit from management on the inpatient unit. She complains in particular of weight fluctuation up and then down with concordant alteration in her appetite. She complains of fatigue and poor sleep. She also complains of visual hallucinations of flies and spider webs that come and go in regions of her visual hoffmann. She denies any auditory hallucinations or other hallucinatory material. She denies any suicidal or homicidal ideation. Affect is somewhat dysphoric. No hypomanic or manic symptoms presently. The remainder of her psychiatric ROS is negative. The patient complains of headache and bilateral ear pain. PAST PSYCHIATRIC HISTORY The patient has chart history of schizoaffective disorder and bipolar disorder as noted above. She is not currently under the care of a psychiatrist. She reports that she is prescribed Risperdal, Cogentin and Trazodone and insists that she takes these as prescribed. She denies any interval psychiatric admissions since she was here in 2014. She denies any history of suicide attempts. She denies any history of violent behavior. FAMILY HISTORY The patient denies any family history of serious mental illness or suicide. CHEMICAL DEPENDENCY HISTORY The patient denies any abuse of drugs or alcohol. She denies any use of tobacco. SOCIAL HISTORY The patient reports that she lives with her mother's adoptive mother. She is single with no children. She has an associates degree in medical assisting. She does not work presently and is disabled. She denies any history. Denies any legal history. Denies any access to guns or firearms. Denies any history of abuse. She is a Jehovah'S Witness. PAST MEDICAL HISTORY The patient denies any acute medical issues, although I note that she was diagnosed with a UTI in the ED and started on some Keflex for this. MEDICATIONS 1. Risperdal 0.5 mg at bedtime 2. Cogentin 0.5 mg at bedtime 3. Trazodone 50 mg at bedtime ALLERGIES No known allergies. REVIEW OF SYSTEMS Except as noted in HPI, this is negative. PHYSICAL EXAMINATION VITAL SIGNS: Temperature 97.3, pulse 86, respirations 18, blood pressure 117/68, pulse oximetry 95% on room air. A physical examination was completed by the ED provider. On my examination today, the patient appears to be in no acute physical distress. No motor abnormalities noted. LABORATORIES REVIEWED CBC reveals leukocytosis with a white blood cell count of 14.4. Hemoglobin and platelet count are within normal limits. BMP reveals hypokalemia with A potassium of 3.2. No LFTs are on file. A urine toxicology is negative. Alcohol level undetectable. Urinalysis reveals 9 white blood cells and large leukocyte esterase, concerning for UTI. Urine culture is presently pending. ED point of care test was negative. MENTAL STATUS EXAM The patient is in hospital attire. She is well-groomed and maintaining basic hygiene. She is awake and alert and oriented x4. No motor abnormalities noted. Speech is within normal limits for rate, tone and volume. Language and fund of knowledge approximately average. Focus and concentration intact. Memory grossly intact on clinical exam. Mood is a little bit dysphoric and affect is consistent with stated mood. Thought process linear. No loosening of associations. No delusions elicited. Reports visual but not auditory hallucinations. Denies suicidal or homicidal ideation. Insight and judgment seem fair. ASSESSMENT/PLAN This is a 27-year-old female with psychiatric history as detailed above who presents under a High ACT. On my examination today, the patient reports that the argument with her family was unrelated to her current psychiatric issues. In fact, she says she was just trying to go to the pharmacy to get her medications. She does report some ongoing psychiatric symptoms including fatigue and visual hallucinations and requests a medication adjustment for these problems. The patient reportedly is presently taking Risperdal, but finds it too sedating. Given her body habitus, I think a medication with minimal metabolic side effects would be desirable. I have discussed with the patient the risks, benefits and alternatives of a trial of Abilify. If successful, we might consider transitioning the patient to Abilify Maintena. The patient is agreeable to beginning this medication today. The patient will be admitted to the inpatient psychiatric unit for medication adjustment and stabilization. Admit inpatient. Voluntary status. I will check CMP, CBC and TSH as well as a magnesium level. I will check an EKG for QTc. I will consult the hospitalist for the patient's complaints of headache, as well as bilateral ear pain. I will initiate Abilify 5 mg daily with plan to titrate to effect to target reported psychotic symptoms. I will continue the patient's Keflex for UTI and follow up urine culture. Cogentin as needed for EPS, Ativan as needed for anxiety, trazodone as needed for sleep. Vitals every shift. Counselor to see. Disposition planning. Estimated length of stay: 5-7 days. Ernesto PEREZ 11:28 AM 11:43 AM TONIO
[2017-04-11] MEDS: ARIPiprazole 5 MG TAB PO SCH (12:54)
--- NOTE | 2017-04-11 14:39 | PD.CONS ---
[facility]. Reason for Consult Headache, bilateral ear pain. Primary Care Physician No Primary Care Physician Diagnoses: History of Present Illness Ms. Shen is a 27 year old female with a history of bipolar disorder who was admitted to psychiatry unit for suicidal threats. At the time of this interview , patient is resting well in bed. She reports two month long bilateral ear pain. No fever, chills. She also reports two month long urinary tract infection including dysuria. She has been evaluated in the ED recently due to otitis externa. However, she couldn not obtain Cipro-Dex due to cost. Patient denies any chest pain, SOB, cough. She refuses a physical exam at this time. Review of Systems Except as stated in HPI: all other systems reviewed are Neg Past Family Social History Allergies: Coded Allergies: No Known Allergies (Verified Adverse Reaction, Unknown, 04/09/17) Past Medical History Bipolar disorder Past Surgical History No past surgical history Family History No significant family history for cancer, heart disease Social History Patient drinks occasionally. Denies using tobacco or illicit drugs Physical Exam Vital Signs Vital Signs Date Time Temp Pulse Resp B/P (MAP) Pulse Ox O2 Delivery O2 Flow Rate FiO2 04/11/17 05:45 97.3 86 18 117/68 (84) 95 04/11/17 00:05 96.0 83 18 138/83 (101) 99 04/10/17 23:09 04/10/17 22:09 84 18 135/65 (88) Physical Exam Refused physical exam. Laboratory Date/Time Source Procedure Growth Status 04/10/17 00:25 Urine Clean Catch Urine Culture - Final 50-100,000 CFU/ML MIXED URIEL... Complete Result Diagram: 04/09/17211404/09/172114 Assessment and Plan Assessment and Plan Ms. Shen is a 27 year old female with a history of bipolar disorder who was admitted to psychiatry unit for suicidal threats. At the time of this interview , patient is resting well in bed. She reports two month long bilateral ear pain. She also reports two month long dysuria. She has been evaluated in the ED recently due to otitis externa. However, she couldn not obtain Cipro-Dex due to cost. Patient denies any chest pain, SOB, cough. She refuses a physical exam at this time. - Probable acute on chronic otitis externa - Will start Ofloxacin topical 10 drops per ear once a day for 7 days. - Patient should follow up with an ENT physician in the outpatient setting. - Mild hypokalemia - K+ 3.2 --> 3.9. Full code. Ambulation. Thank you for the consult. We will continue to follow this patient with you. Ed Simpson DO Apr 11, 2017 14:39
[2017-04-11] MEDS ORDERED: OFLOXACIN 0.3% OPTH SOLN 5 ML BTL EACH EAR SCH (15:00)
[2017-04-11 15:04] VITALS: BP 133/55; PULSE 89; RESP 18; TEMP 99.1; O2SAT 98
[2017-04-11 20:56] LABS: AUTOMATED NEUTROPHIL # 9.8 TH/MM3 (1.8-7.7); BASOPHIL % 0.3 % (0.0-2.0); EOSINOPHIL # 0.2 TH/MM3 (0-0.4); EOSINOPHIL % 1.2 % (0.0-4.0); HEMATOCRIT 39.3 % (35.0-46.0); HEMOGLOBIN 13.4 GM/DL (11.6-15.3); LYMPH % 19.9 % (9.0-44.0); LYMPHOCYTE # 2.7 TH/MM3 (1.0-4.8); MEAN CELL VOLUME 79.9 FL (80.0-100.0); MEAN CORPUSCULAR HEMOGLOBIN 27.2 PG (27.0-34.0); MEAN CORPUSCULAR HGB CONC 34.1 % (32.0-36.0); MEAN PLATELET VOLUME 9.7 FL (7.0-11.0); MONO % 7.5 % (0.0-8.0); NEUT % 71.1 % (16.0-70.0); PLATELET COUNT 308 TH/MM3 (150-450); RED BLOOD COUNT 4.92 MIL/MM3 (4.00-5.30); RED CELL DISTRIBUTION WIDTH 13.1 % (11.6-17.2); WHITE BLOOD COUNT 13.7 TH/MM3 (4.0-11.0)
[2017-04-11 21:19] LABS: ALBUMIN 3.8 GM/DL (3.4-5.0); AST (GOT) 25 U/L (15-37); BICARBONATE 29.2 MEQ/L (21.0-32.0); BLOOD UREA NITROGEN 10 MG/DL (7-18); CALCIUM 8.9 MG/DL (8.5-10.1); CHLORIDE 103 MEQ/L (98-107); CREATININE 0.92 MG/DL (0.50-1.00); GLOMERULAR FILTRATION RATE 89 ML/MIN (>89); GLUCOSE,RANDOM 71 MG/DL (74-106); MAGNESIUM 2.1 MG/DL (1.5-2.5); SODIUM (NA) 139 MEQ/L (136-145)
[2017-04-11 21:20] LABS: ALT (GPT) 54 U/L (10-53)
[2017-04-11 21:30] LABS: ALKALINE PHOSPHATASE 88 U/L (45-117); TOTAL BILIRUBIN ADULT 0.3 MG/DL (0.2-1.0); TOTAL PROTEIN 7.9 GM/DL (6.4-8.2)
[2017-04-11 22:30] LABS: CHOLESTEROL 130 MG/DL (120-200); TRIGLYCERIDES 55 MG/DL (42-150)
[2017-04-11 22:32] LABS: CHOLESTEROL/ HDL RATIO 3.79 RATIO; HDL CHOLESTEROL 34.3 MG/DL (40.0-60.0); LDL CHOLESTEROL 85 MG/DL (0-99)
[2017-04-11 22:36] LABS: HEMOGLOBIN A1C 4.6 % (4.3-6.0)
[2017-04-12 06:17] VITALS: BP 134/83; PULSE 79; RESP 18; TEMP 97.3; O2SAT 99
[2017-04-12] MEDS: OFLOXACIN 0.3% OPTH SOLN 5 ML BTL EACH EAR SCH (08:53)
[2017-04-12] MEDS: ARIPiprazole 5 MG TAB PO SCH (08:53)
--- NOTE | 2017-04-12 11:49 | HHI.PYPN ---
Subjective Remarks Patient seen and examined with nurse. Chart reviewed. Case discussed with nursing staff who reports that the patient appears somewhat internally stimulated and was noted to be dancing in front of the television but has presented no behavioral problem on the unit. Case discussed in treatment team. On my examination today, the patient complains of poor sleep and requests that her trazodone be scheduled. She denies any SI or HI. She denies any audiovisual hallucinations. She denies side effects from medications. She does complain of some constipation. She is still moving her bowels but finds it somewhat more difficult to do so. She continues to pass flatus. Review of Systems Except as stated in HPI: all other systems reviewed are Neg Mental Status Examination Appearance: Other (in hospital attire. Well groomed.) Consciousness: Alert Orientation: Person, Place (at least) Motor Activity: Normal gait, Other (no motor abnormalities noted) Speech: Unremarkable Language: Adequate Fund of Knowledge: Adequate Attention and Concentration: Adequate Memory: Unremarkable (grossly intact on clinical exam) Mood: Appropriate Affect: Appropriate Thought Process & Associations: Intact, Logical, Linear Thought Content: Appropriate Hallucination Type: None (denies AVH) Delusion Type: None Suicidal Ideation: No Suicidal Plan: No Suicidal Intention: No Homicidal Ideation: No Homicidal Plan: No Homicidal Intention: No Insight: Fair Judgment: Adequate (fair) Results Labs Test 04/11/17 19:57 White Blood Count 13.7 TH/MM3 Red Blood Count 4.92 MIL/MM3 Hemoglobin 13.4 GM/DL Hematocrit 39.3 % Mean Corpuscular Volume 79.9 FL Mean Corpuscular Hemoglobin 27.2 PG Mean Corpuscular Hemoglobin Concent 34.1 % Red Cell Distribution Width 13.1 % Platelet Count 308 TH/MM3 Mean Platelet Volume 9.7 FL Neutrophils (%) (Auto) 71.1 % Lymphocytes (%) (Auto) 19.9 % Monocytes (%) (Auto) 7.5 % Eosinophils (%) (Auto) 1.2 % Basophils (%) (Auto) 0.3 % Neutrophils # (Auto) 9.8 TH/MM3 Lymphocytes # (Auto) 2.7 TH/MM3 Monocytes # (Auto) 1.0 TH/MM3 Eosinophils # (Auto) 0.2 TH/MM3 Basophils # (Auto) 0.0 TH/MM3 CBC Comment DIFF FINAL Differential Comment Blood Urea Nitrogen 10 MG/DL Creatinine 0.92 MG/DL Random Glucose 71 MG/DL Total Protein 7.9 GM/DL Albumin 3.8 GM/DL Calcium Level 8.9 MG/DL Magnesium Level 2.1 MG/DL Alkaline Phosphatase 88 U/L Aspartate Amino Transf (AST/SGOT) 25 U/L Alanine Aminotransferase (ALT/SGPT) 54 U/L Total Bilirubin 0.3 MG/DL Sodium Level 139 MEQ/L Potassium Level 3.9 MEQ/L Chloride Level 103 MEQ/L Carbon Dioxide Level 29.2 MEQ/L Anion Gap 7 MEQ/L Estimat Glomerular Filtration Rate 89 ML/MIN Hemoglobin A1c 4.6 % Triglycerides Level 55 MG/DL Cholesterol Level 130 MG/DL LDL Cholesterol 85 MG/DL HDL Cholesterol 34.3 MG/DL Cholesterol/HDL Ratio 3.79 RATIO Thyroid Stimulating Hormone 3rd Gen 1.040 uIU/ML Date/Time Source Procedure Growth Status 04/10/17 00:25 Urine Clean Catch Urine Culture - Final 50-100,000 CFU/ML MIXED MELVIN... Complete Labs reviewed. Leukocytosis improving. TSH within normal limits. Urine culture reveals mixed melvin, and I note that the hospitalist has discontinued the patient's Keflex. Vitals/IOs Vital Signs Date Time Temp Pulse Resp B/P (MAP) Pulse Ox O2 Delivery O2 Flow Rate FiO2 04/12/17 06:17 97.3 79 18 134/83 (100) 99 04/10/17 06:58 Room Air Assessment & Plan Problem List: (1) Adjustment disorder with mixed disturbance of emotions and conduct ICD Codes: F43.25 - Adjustment disorder with mixed disturbance of emotions and conduct (2) Schizoaffective disorder, bipolar type ICD Codes: F25.0 - Schizoaffective disorder, bipolar type Assessment & Plan Continue Abilify as ordered. Patient is not interested in adjusting this med today. Schedule trazodone. Bowel regimen. Occupational therapy consult. Hospitalist input noted and appreciated. Continue to monitor on the inpatient unit. Continue other medications and care as ordered. Justification for Cont. Inpt. Monitoring for impairment in safety, none noted. Discharge Planning Pending outcome of observation. Case discussed with counselor. I see that the patient's mother was requesting to speak with the treatment team, and I have asked the counselor with patient's permission to give her a call. Ernesto Mahmood MD Apr 12, 2017 11:49
[2017-04-12] MEDS ORDERED: BISACODYL EC 5 MG TABEC PO PRN (12:00)
--- NOTE | 2017-04-12 14:02 | EKG ---
Date Performed: 04/11/2017 Time Performed: 13:14:24 PTAGE: 27 years EKG: Sinus rhythm WITH SINUS ARRHYTHMIA NORMAL ECG NO PREVIOUS TRACING DOCTOR: Jermaine Murrieta Interpretating Date/Time 04/12/2017 14:00:20
--- NOTE | 2017-04-12 14:07 | HHI.PR ---
Subjective Remarks Follow-up visit for otitis externa. Patient seen and examined today. Patient states she is doing okay. States that she doesn't have ear pain right now and she thinks that the medication is working. Patient was pacing the hallway, trying to avoid examination. Patient denies any chest pain, SOB, cough. Objective Vitals Vital Signs Date Time Temp Pulse Resp B/P (MAP) Pulse Ox O2 Delivery O2 Flow Rate FiO2 04/12/17 06:17 97.3 79 18 134/83 (100) 99 04/11/17 15:04 99.1 89 18 133/55 (81) 98 Result Diagram: 04/11/17195604/11/171956 Objective Remarks GENERAL: This is an obese, well-developed patient, in no apparent distress. HEENT: Normocephalic. Nose without bleeding. Airway patent. NECK: Trachea midline. MUSCULOSKELETAL: Extremities without clubbing, cyanosis, or edema. NEUROLOGICAL: Awake and alert. No focal neuro deficit. Moves all extremities. Normal speech. A/P Problem List: (1) Otitis externa ICD Code: H60.90 - Unspecified otitis externa, unspecified ear (2) Adjustment disorder with mixed disturbance of emotions and conduct ICD Code: F43.25 - Adjustment disorder with mixed disturbance of emotions and conduct (3) Schizoaffective disorder, bipolar type ICD Code: F25.0 - Schizoaffective disorder, bipolar type Assessment and Plan Patient is a 27 year old female with a history of bipolar disorder who was admitted to psychiatry unit for suicidal threats. At the time of this interview , patient is resting well in bed. She reports two month long bilateral ear pain. She also reports two month long dysuria. She has been evaluated in the ED recently due to otitis externa. However, she couldn not obtain Cipro-Dex due to cost. Patient denies any chest pain, SOB, cough. She refuses a physical exam at this time. Probable acute on chronic otitis externa - Continue Ofloxacin topical 10 drops per ear once a day for 7 days. - Patient should follow up with an ENT physician in the outpatient setting. - Denies ear pain. Refuse Ear exam. Suspicious behavior. DVT prop ambulatory Stable from Hospitalist standpoint. We will sign off. Reconsult as needed. Bettye Lees Apr 12, 2017 14:07
[2017-04-12 18:02] VITALS: BP 163/73; PULSE 77; RESP 18; TEMP 98.6; O2SAT 100
[2017-04-12] MEDS: traZODone HCL 50 MG TAB PO SCH (21:00)
[2017-04-12] MEDS: DOCUSATE SODIUM 100 MG CAP PO SCH (21:00)
[2017-04-12] MEDS: LORazepam 1 MG TAB PO PRN (23:35)
[2017-04-13 05:49] VITALS: BP 110/64; PULSE 76; RESP 18; TEMP 96.8; O2SAT 98
[2017-04-13] MEDS: ARIPiprazole 5 MG TAB PO SCH (08:59)
[2017-04-13] MEDS: DOCUSATE SODIUM 100 MG CAP PO SCH ×2 (08:59→20:53)
[2017-04-13] MEDS: OFLOXACIN 0.3% OPTH SOLN 5 ML BTL EACH EAR SCH (08:59)
--- NOTE | 2017-04-13 11:56 | HHI.PYPN ---
Subjective Remarks Patient seen and examined with counselor. Chart reviewed. Case discussed with nurse and counselor. On my examination today, the patient remains a little bit internally stimulated. She complains of "bad thoughts." She does not describe any command auditory hallucinations. She has no SI or HI. She denies side effects from medications. She is agreeable to titration of her Abilify to 10 mg daily. She provides telephone number for father to the counselor for collateral information. She does complain of an intertriginous rash on thighs but otherwise has no physical complaints. Review of Systems ROS Limitations: Psychotic Except as stated in HPI: all other systems reviewed are Neg Mental Status Examination Appearance: Appropriate Consciousness: Alert Orientation: Person, Place (at least) Motor Activity: Normal gait, Other (no motoric abnormalities noted) Speech: Unremarkable Language: Adequate Fund of Knowledge: Adequate Attention and Concentration: Adequate Memory: Unremarkable Mood: Appropriate Affect: Appropriate Thought Process & Associations: Intact, Logical, Linear Thought Content: Appropriate Hallucination Type: Auditory (appear somewhat internally stimulated and complains of "bad thoughts") Delusion Type: None Suicidal Ideation: No Suicidal Plan: No Suicidal Intention: No Homicidal Ideation: No Homicidal Plan: No Homicidal Intention: No Insight: Fair Judgment: Adequate (fair) Mental Status Exam Remarks Rash on thighs appears to be mildly macerated skin, and I do not appreciate signs of infection. Results Labs Date/Time Source Procedure Growth Status 04/10/17 00:25 Urine Clean Catch Urine Culture - Final 50-100,000 CFU/ML MIXED URIEL... Complete Vitals/IOs Vital Signs Date Time Temp Pulse Resp B/P (MAP) Pulse Ox O2 Delivery O2 Flow Rate FiO2 04/13/17 05:49 96.8 76 18 110/64 (79) 98 04/10/17 06:58 Room Air Assessment & Plan Problem List: (1) Adjustment disorder with mixed disturbance of emotions and conduct ICD Codes: F43.25 - Adjustment disorder with mixed disturbance of emotions and conduct (2) Schizoaffective disorder, bipolar type ICD Codes: F25.0 - Schizoaffective disorder, bipolar type Assessment & Plan Titrate Abilify to 10mg daily to target psychotic symptoms. Could consider Abilify Maintena. Barrier cream for rash. Into new to monitor on an inpatient unit. Continue other medications and care as ordered. Justification for Cont. Inpt. Medication changes. Impairment in reality construction. High risk for decompensation in less restrictive environment. Discharge Planning Pending psychiatric stabilization. Request HC Surrog/Guard Advoc?: No Ernesto Mahmood MD Apr 13, 2017 11:56
[2017-04-13 16:53] VITALS: BP 133/73; PULSE 89; RESP 18; TEMP 98; O2SAT 98
[2017-04-13] MEDS: traZODone HCL 50 MG TAB PO SCH (20:53)
[2017-04-14] MEDS: LORazepam 1 MG TAB PO PRN (01:20)
[2017-04-14 06:06] VITALS: BP 114/76; PULSE 95; RESP 16; TEMP 96; O2SAT 98
[2017-04-14] MEDS: OFLOXACIN 0.3% OPTH SOLN 5 ML BTL EACH EAR SCH (09:00)
[2017-04-14] MEDS: PETROLATUM 49%/ZINC OXIDE 15% 4 OUNCE TUBE TOPICAL SCH (09:04)
[2017-04-14] MEDS: DOCUSATE SODIUM 100 MG CAP PO SCH ×2 (09:06→20:31)
[2017-04-14] MEDS: ARIPiprazole 5 MG TAB PO SCH (09:06)
--- NOTE | 2017-04-14 15:36 | HHI.PYPN ---
Subjective Remarks Patient seen in her room with nurse Shanthi. Chart reviewed. Patient compliant medication. Patient somewhat irritable demanding and guarded with me patient appears distracted making very poor eye contact I asked her if she was hearing voices she denied them and became even angry her. I asked her about her relationship with her grandmother. She then asked the nurse to leave the room, I declined to allow that to happen. Patient then became resistant to any further questions for now will continue treatment Review of Systems Except as stated in HPI: all other systems reviewed are Neg Mental Status Examination Appearance: Appropriate Consciousness: Alert Orientation: Person, Place (at least) Motor Activity: Normal gait, Other (no motoric abnormalities noted) Speech: Unremarkable Language: Adequate Fund of Knowledge: Adequate Attention and Concentration: Adequate Memory: Unremarkable Mood: Appropriate Affect: Appropriate Thought Process & Associations: Intact, Logical, Linear Thought Content: Appropriate Hallucination Type: Auditory (appear somewhat internally stimulated and complains of "bad thoughts") Delusion Type: None Suicidal Ideation: No Suicidal Plan: No Suicidal Intention: No Homicidal Ideation: No Homicidal Plan: No Homicidal Intention: No Insight: Fair Judgment: Adequate (fair) Results Labs Date/Time Source Procedure Growth Status 04/10/17 00:25 Urine Clean Catch Urine Culture - Final 50-100,000 CFU/ML MIXED URIEL... Complete Vitals/IOs Vital Signs Date Time Temp Pulse Resp B/P (MAP) Pulse Ox O2 Delivery O2 Flow Rate FiO2 04/14/17 06:06 96.0 95 16 114/76 (89) 98 Assessment & Plan Problem List: (1) Adjustment disorder with mixed disturbance of emotions and conduct ICD Codes: F43.25 - Adjustment disorder with mixed disturbance of emotions and conduct (2) Schizoaffective disorder, bipolar type ICD Codes: F25.0 - Schizoaffective disorder, bipolar type Assessment & Plan Estimated LOS: days patient angry irritable somewhat vigilant mildly paranoid. Compliant medications Justification for Cont. Inpt. At this time patient will decompensate or placed on lower level of care Discharge Planning Possible return home to grandmother Request HC Surrog/Guard Advoc?: No Abimael Abreu MD Apr 14, 2017 15:36
[2017-04-14] MEDS: traZODone HCL 50 MG TAB PO SCH (20:31)
[2017-04-15 06:09] VITALS: BP 140/66; PULSE 75; RESP 18; TEMP 97.3; O2SAT 97
[2017-04-15] MEDS: OFLOXACIN 0.3% OPTH SOLN 5 ML BTL EACH EAR SCH (09:00)
[2017-04-15] MEDS: PETROLATUM 49%/ZINC OXIDE 15% 4 OUNCE TUBE TOPICAL SCH (09:00)
[2017-04-15] MEDS: ARIPiprazole 5 MG TAB PO SCH (09:20)
[2017-04-15] MEDS: DOCUSATE SODIUM 100 MG CAP PO SCH (09:20)
[2017-04-15] MEDS ORDERED: ARIP1TAB11 PO (15:10)
[2017-04-15] MEDS ORDERED: DOCU1CAP39 PO (15:10)
[2017-04-15] MEDS ORDERED: TRAZ50TA12 PO (15:10)
--- NOTE | 2017-04-15 15:18 | HHI.DS ---
Psychiatry Discharge Summary Inpatient Psychiatric care?: Yes Advance Directive: No Reason Not Provided: DECLINE Mental Health AdvanceDirective: No Health Care Proxy: No Admission Admission Date Apr 10, 2017 at 19:43 Admission Diagnosis: (1) Adjustment disorder with mixed disturbance of emotions and conduct ICD Code: F43.25 - Adjustment disorder with mixed disturbance of emotions and conduct (2) Schizoaffective disorder, bipolar type ICD Code: F25.0 - Schizoaffective disorder, bipolar type Brief History Please see initial H&P transcribed by Dr. Mahmood Tobacco Use In Past 30 Days: No Tobacco Past 30 Days Alcohol Use: Never Hospital Course Patient showed no behavioral issues though the hospitalization there is some irritability isolation and perhaps mild cluster B issues. Patient seen by me today she denies suicidality homicidality voices or visions that she had a good conversation with her father. She now feels safe is willing to go back home with her grandmother. I feel she has recently maximum benefit of this hospitalization thus patient to be discharged today will be discharged today with Rx 1 month follow-up [facility] Results Blood Pressure 140 / 66 Vital Signs Date Time Temp Pulse Resp B/P (MAP) Pulse Ox O2 Delivery O2 Flow Rate FiO2 04/15/17 06:09 97.3 75 18 140/66 (90) 97 Laboratory Results Test 04/11/17 19:57 Cholesterol Level 130 MG/DL (120-200) HDL Cholesterol 34.3 MG/DL (40.0-60.0) Hemoglobin A1c 4.6 % (4.3-6.0) LDL Cholesterol 85 MG/DL (0-99) Triglycerides Level 55 MG/DL (42-150) Summary of Procedures None done Pending results at discharge: No Medications # of Antipsychotic meds at D/C: 1 Approp Antipsych med options 1 - Minimum of three failed multiple trials of monotherapy. 2 - Documented plan to taper to monotherapy due to previous use of multiple meds OR cross-taper in progress at D/C. 3 - Documentation of augmentation of Clozapine. 4 - Justification other than those listed in allowable values 1-3, document here : Discharge Discharge Date: Apr 15, 2017 Discharge Diagnosis: (1) Adjustment disorder with mixed disturbance of emotions and conduct Diagnosis: Principal ICD Code: F43.25 - Adjustment disorder with mixed disturbance of emotions and conduct (2) Schizoaffective disorder, bipolar type Diagnosis: Secondary ICD Code: F25.0 - Schizoaffective disorder, bipolar type Pt Condition on Discharge: Stable Discharge Disposition: Discharge Home Discharge Instructions Diet Instructions: As Tolerated, No Restrictions Activities you can perform: Regular-No Restrictions Scheduled Appointment: [facility] Appointment Date: Apr 19, 2017 Appointment Time: 7:30 am Discharge Time > 30 minutes Mental Status Examination Appearance: Appropriate Consciousness: Alert Orientation: Person, Place (at least) Motor Activity: Normal gait, Other (no motoric abnormalities noted) Speech: Unremarkable Language: Adequate Fund of Knowledge: Adequate Attention and Concentration: Adequate Memory: Unremarkable Mood: Appropriate Affect: Appropriate Thought Process & Associations: Intact, Logical, Linear Thought Content: Appropriate Hallucination Type: Auditory (appear somewhat internally stimulated and complains of "bad thoughts") Delusion Type: None Suicidal Ideation: No Suicidal Plan: No Suicidal Intention: No Homicidal Ideation: No Homicidal Plan: No Homicidal Intention: No Insight: Fair Judgment: Adequate (fair) Discharge/Advance Care Plan Health Problems: (1) Adjustment disorder with mixed disturbance of emotions and conduct (2) Schizoaffective disorder, bipolar type Goals to promote your health * To prevent worsening of your condition and complications * To maintain your health at the optimal level Directions to meet your goals Take your medications as prescribed Follow your dietary instruction Follow activity as directed Keep your appointments as scheduled Take your immunizations and boosters as scheduled If your symptoms worsen call your PCP, if no PCP go to Urgent Care Center or Emergency Room For 25/10 questions related to your inpatient stay or results of tests pending at discharge, please contact Dr. Abimael Abreu at Smoking is Dangerous to Your Health. Avoid second hand smoking Abimael Abreu MD Apr 15, 2017 15:18
== END 2017-04-15 16:55 | disposition home or self-care (01) | DRG 882 ==
LOC: NEPD 20:34 → NEDA 04-10 19:43 → H270 04-10 23:02 → H260 04-14 14:10
PROVIDERS: ADMIT Psychiatry & Neurology Psychiatry; ATTEND Psychiatry & Neurology Psychiatry
DX: F43.25 Adjustment disorder with mixed disturbance of emotions and conduct (principal); R45.851 Suicidal ideations; Z68.43 Body mass index [BMI] 50.0-59.9, adult; F25.0 Schizoaffective disorder, bipolar type; E87.6 Hypokalemia; H60.93 Unspecified otitis externa, bilateral; K59.00 Constipation, unspecified; E66.9 Obesity, unspecified; R21 Rash and other nonspecific skin eruption; R51 Headache
CPT/HCPCS: 80048; 80053; 80061; 80307; 81001; 83036; 83735; 84443; 84703; 85025; 87086; 93005; 99285

== ENCOUNTER 2017-05-12 11:36 | Emergency (ER) | payer MEDICARE, OTHER ==
[~2017-05-12 11:36] MED LIST changes: +ARIP1TAB11 PO; -BENZ0.5T PO; +DOCU1CAP39 PO; -RISP1TAB2 PO
[2017-05-12 11:38] VITALS: BP 168/78; PULSE 93; RESP 16; TEMP 98.2; O2SAT 98
== END 2017-05-12 11:45 | disposition left against medical advice (07) ==
LOC: NED 11:36
DX: F99 Mental disorder, not otherwise specified (principal)
CPT/HCPCS: 99281

== ENCOUNTER 2017-06-05 03:57 | Emergency (ER) | payer MEDICARE ==
[2017-06-05 04:03] VITALS: BP 127/87; PULSE 79; RESP 18; TEMP 97.7; O2SAT 100
--- NOTE | 2017-06-05 04:28 | PD ---
HPI Chief Complaint: Medical Clearance Time Seen by Provider: 04:22 Travel History International Travel<30 days: No Contact w/Intl Traveler<30days: No Traveled to known affect area: No History of Present Illness HPI 27-year-old female with history of bipolar disorder here complaining of burning feet, dysuria, vaginal itching, pain all over, feeling as though she has blood clots all over her body. Symptoms started tonight. She is complaining of generalized pruritus. She denies illicit drug use. No fevers. When I explained to her that I would like to proceed with labs and a pelvic exam, the patient declined both of these tests, stating that she only wants me to check her urine for possible infection. She is not suicidal or homicidal. PFSH Past Medical History Asthma: Yes ( A CHILD) Bipolar Disorder: Yes Cancer: No Cardiovascular Problems: Yes (Patient states she has felt a fluttering in the heart) Developmental Delay: No Diabetes: No Diminished Hearing: No Headaches: Yes Psychiatric: Yes (two years ago was hospitalized at [facility]) Immunizations Current: Yes Seizures: No Tetanus Vaccination: < 5 Years Influenza Vaccination: No ?: Unknown LMP: 3 : 0 Para: 0 Miscarriage: 0 : 0 Past Surgical History Surgical History: No Previous Surgery Social History Alcohol Use: No (OCC) Tobacco Use: No Substance Use: No Allergies-Medications (Allergen,Severity, Reaction): Coded Allergies: No Known Allergies (Verified Adverse Reaction, Unknown, 04/09/17) Reported Meds & Prescriptions Reported Meds & Active Scripts Active Trazodone (Trazodone HCl) 50 Mg Tab 50 Mg PO HS must see ron riddle for next refill Review of Systems Except as stated in HPI: all other systems reviewed are Neg Physical Exam Narrative GENERAL: Well-developed, well-nourished, overweight, comfortable, no apparent distress. SKIN: Focused skin assessment warm/dry. No rash. HEAD: Atraumatic. Normocephalic. EYES: Pupils equal and round. No scleral icterus. No injection or drainage. ENT: Mucous membranes pink and moist. NECK: Trachea midline. No JVD. CARDIOVASCULAR: Regular rate and rhythm. No murmur appreciated. RESPIRATORY: No accessory muscle use. Clear to auscultation. Breath sounds equal bilaterally. GASTROINTESTINAL: Abdomen soft, non-tender, nondistended. MUSCULOSKELETAL: No obvious deformities. No clubbing. No cyanosis. No edema. NEUROLOGICAL: Awake and alert. No obvious cranial nerve deficits. Motor grossly within normal limits. Normal speech. PSYCHIATRIC: Appropriate mood and affect; insight and judgment normal. Data Data Last Documented VS Vital Signs Date Time Temp Pulse Resp B/P (MAP) Pulse Ox O2 Delivery O2 Flow Rate FiO2 06/05/17 04:03 97.7 79 18 127/87 (100) 100 Orders Orders Urinalysis - C+S If Indicated (06/05/17 04:24) Diphenhydramine (Benadryl) (06/05/17 05:00) Urine Culture (06/05/17 04:39) Labs Laboratory Tests Test 06/05/17 04:39 Urine Color DARK-YELLOW Urine Turbidity HAZY Urine pH 5.5 Urine Specific [place] 1.032 Urine Protein 30 mg/dL Urine Glucose (UA) NEG mg/dL Urine Ketones 10 mg/dL Urine Occult Blood LARGE Urine Nitrite NEG Urine Bilirubin SMALL Urine Urobilinogen 2.0 MG/DL Urine Leukocyte Esterase MOD Urine RBC 68 /hpf Urine WBC 9 /hpf Urine Squamous Epithelial Cells 8 /hpf Urine Bacteria RARE /hpf Urine Mucus MANY /lpf Microscopic Urinalysis Comment CULTURE INDICATED MDM Medical Decision Making Medical Screen Exam Complete: Yes Emergency Medical Condition: Yes Differential Diagnosis UTI, metabolic abnormality, dermatitis, probable vaginal candidiasis, cystitis, acute psychosis Narrative Course Patient has several different complaints, and when I told her I would like to do blood work and a pelvic exam, the patient declined both of these tests, stating that she only wants me to check her urine for a possible infection. She is not suicidal or homicidal. She does have significant psychiatric history. She does not appear to be a danger to herself or others. I will check her urine and if there is a UTI I will treat it, however if this is negative, she will be discharged home and advised to follow-up with her primary care physician/psychiatrist this week. UA: Hazy, large occult blood, 60 RBCs, 9 WBCs, rare bacteria, many mucus. Patient reports that she is currently on her menstrual period. She is asking for an antibiotic for her urine. I will start her on Macrobid. She is otherwise sleeping comfortably and is in no acute distress and can be further worked up as an outpatient. Diagnosis Primary Impression: UTI (urinary tract infection) Qualified Codes: N39.0 - Urinary tract infection, site not specified; R31.9 - Hematuria, unspecified Referrals: Primary Care Physician 3 days Additional Instructions: Follow-up with your primary care physician this week. Return to the emergency department for worsening symptoms or any other concerns. Scripts Nitrofurantoin Monohydrate Macrocrystals (Macrobid) 100 Mg Cap 100 MG PO BID for Infection for 5 Days, #10 CAP 0 Refills Prov: Mariano Urban MD 06/05/17 Disposition: 01 DISCHARGE HOME Condition: Stable Mariano Urban MD Jun 05, 2017 04:28
[2017-06-05] MEDS ORDERED: diphenhydrAMINE HCL 25 MG CAP PO ONE (05:00)
[2017-06-05 05:01] LABS: BACTERIA, URINE RARE /hpf; BILIRUBIN, URINE SMALL (NEG); BLOOD, URINE LARGE (NEG); GLUCOSE,URINE NEG (NEG); KETONE, URINE 10 mg/dL (NEG); MUCUS URINE MANY /lpf (OCC); NITRITE,URINE NEG (NEG); PH, URINE 5.5 (5.0-8.5); SQUAMOUS EPITHELIAL CELL URINE 8 /hpf (0-5); URINE COLOR DARK-YELLOW (YELLW/STRAW); URINE LEUKOCYTE ESTERASE MOD (NEG)
[2017-06-05] MEDS ORDERED: MACR100C2 PO (05:07)
[2017-06-05] MEDS ORDERED: NITROFURANTOIN MONOHYD MACROCR 100 MG CAP PO ONE (05:15)
[2017-06-06] MEDS ORDERED: TRAZ50TA12 PO (21:15)
== END 2017-06-05 05:47 | disposition home or self-care (01) ==
LOC: NEPC 03:57
DX: N39.0 Urinary tract infection, site not specified (principal); R31.9 Hematuria, unspecified
CPT/HCPCS: 81001; 87086; 99283

== ENCOUNTER 2017-06-06 20:54 | Emergency (ER) | payer MEDICARE ==
[~2017-06-06 20:54] MED LIST changes: +MACR100C2 PO
[2017-06-06 21:02] VITALS: BP 148/79; PULSE 75; RESP 18; TEMP 97.8; O2SAT 100
[2017-06-06] MEDS ORDERED: TRAZ50TA12 PO (21:15)
--- NOTE | 2017-06-06 21:18 | PD ---
HPI Chief Complaint: Pain: Acute or Chronic Time Seen by Provider: 21:13 Travel History International Travel<30 days: No Contact w/Intl Traveler<30days: No Traveled to known affect area: No History of Present Illness HPI Patient came in stating that she had a room out of her trazodone and that she did not have a primary care doctor to refill that. She also came in complaining of right foot pain which is chronic in nature, patient herself denies that there is any trauma to the area or twisting to the foot or ankle. Denies any suicidal or homicidal ideation. PFSH Past Medical History Asthma: Yes ( A CHILD) Bipolar Disorder: Yes Cancer: No Cardiovascular Problems: Yes (Patient states she has felt a fluttering in the heart) Developmental Delay: No Diabetes: No Diminished Hearing: No Headaches: Yes Psychiatric: Yes (two years ago was hospitalized at [facility]) Immunizations Current: Yes Seizures: No Tetanus Vaccination: < 5 Years Influenza Vaccination: Yes ?: Not : 0 Para: 0 Miscarriage: 0 : 0 Past Surgical History Surgical History: No Previous Surgery Social History Alcohol Use: No (OCC) Tobacco Use: No Substance Use: No Allergies-Medications (Allergen,Severity, Reaction): Coded Allergies: No Known Allergies (Verified Adverse Reaction, Unknown, 06/06/17) Reported Meds & Prescriptions Reported Meds & Active Scripts Active Trazodone (Trazodone HCl) 50 Mg Tab 50 Mg PO HS Macrobid (Nitrofurantoin Monoh/Nitrofur Macro) 100 Mg Cap 100 Mg PO BID 5 Days Trazodone (Trazodone HCl) 50 Mg Tab 50 Mg PO HS must see ron riddle for next refill Review of Systems Except as stated in HPI: all other systems reviewed are Neg Physical Exam Narrative GENERAL: SKIN: Warm and dry. HEAD: Atraumatic. Normocephalic. EYES: Pupils equal and round. No scleral icterus. No injection or drainage. ENT: No nasal bleeding or discharge. Mucous membranes pink and moist. NECK: Trachea midline. No JVD. CARDIOVASCULAR: Regular rate and rhythm. RESPIRATORY: No accessory muscle use. Clear to auscultation. Breath sounds equal bilaterally. GASTROINTESTINAL: Abdomen soft, non-tender, nondistended. MUSCULOSKELETAL: Extremities without clubbing, cyanosis, or edema. No obvious deformities. NEUROLOGICAL: Awake and alert. No obvious cranial nerve deficits. Motor grossly within normal limits. Five out of 5 muscle strength in the arms and legs. Normal speech. PSYCHIATRIC: Appropriate mood and affect; insight and judgment normal. Data Data Last Documented VS Vital Signs Date Time Temp Pulse Resp B/P (MAP) Pulse Ox O2 Delivery O2 Flow Rate FiO2 06/06/17 21:02 97.8 75 18 148/79 (102) 100 Orders Orders Ed Discharge Order (06/06/17 21:21) MDM Medical Decision Making Medical Screen Exam Complete: Yes Emergency Medical Condition: Yes Medical Record Reviewed: Yes Differential Diagnosis N/A Narrative Course This is third visit to the ER for very similar requests, the patient will be referred to a primary care as well as to a strategy planning consultant for her chronic foot pain. There are currently no acute emergencies at this patient is presenting with, and this patient is used in the emergency department as a 24 hour clinic. I advised patient that although I am giving her medication refill today, not to continue to expect multiple providers to be doing this for her as this is something that can be done on a nonurgent basis as an outpatient via a clinic. Diagnosis Primary Impression: MEDICATION REFILL Referrals: Doc Garcia Shantell [facility] Patient Instructions: General Instructions Scripts Trazodone (Trazodone) 50 Mg Tab 50 MG PO HS for Control Depression, #10 TAB 0 Refills Prov: Robert Schneider MD 06/06/17 Disposition: 01 DISCHARGE HOME Condition: Stable Robert Schneider MD Jun 06, 2017 21:18
== END 2017-06-06 21:34 | disposition home or self-care (01) ==
LOC: PHEFT 20:54
DX: Z76.0 Encounter for issue of repeat prescription (principal); M79.671 Pain in right foot; G89.29 Other chronic pain; J45.909 Unspecified asthma, uncomplicated; F31.9 Bipolar disorder, unspecified
CPT/HCPCS: 99281

== ENCOUNTER 2017-06-07 12:26 | Emergency (ER) | payer MEDICARE, MEDICAID ==
[~2017-06-07 12:26] MED LIST changes: -ARIP1TAB11 PO; -CLOT45CR VAGINAL; -DOCU1CAP39 PO; -VITA500012 PO
[2017-06-07 12:41] VITALS: BP 124/69; PULSE 64; RESP 16; TEMP 98.7; O2SAT 97
--- NOTE | 2017-06-07 15:20 | PD ---
HPI Chief Complaint: Public Address Technician Problem/Complaint Time Seen by Provider: 15:08 Travel History International Travel<30 days: No Contact w/Intl Traveler<30days: No Traveled to known affect area: No History of Present Illness HPI 27-year-old female presents to the emergency department I reviewed her medical record and she has history of bipolar and schizoaffective disorder. The patient is complaining of vaginal bleeding 2 days and lower abdominal cramping. She doesn't know the last time that she had her menses. She says that her period is heavier than normal. She refuses to wear a pad or tampon because she says they cause cancer. She says her mom sent her here for evaluation. She mentions that she was here yesterday for complaint of foot pain and said that nobody did anything about her foot pain and if no one does anything about her vaginal bleeding she will come back. She denies abnormal vaginal discharge or odor. Denies dysuria. Denies fever, vomiting. She reports feeling "anemic" and lightheaded, but she denies history of anemia. Denies risk of . Has not taken any medications or tried any symptoms. She is refusing for me to do a physical exam. She says that she doesn't want me or anyone else to touch her. She is requesting a male doctor to see her. No known aggravating or relieving relieving factors. Symptoms are mild in severity. No known allergies. No primary care provider. Denies significant past medical history. Has no other medical complaints. No other modifying factors or associated signs and symptoms. PFSH Past Medical History Asthma: Yes ( A CHILD) Bipolar Disorder: Yes Cancer: No Cardiovascular Problems: Yes (Patient states she has felt a fluttering in the heart) Developmental Delay: No Diabetes: No Diminished Hearing: No Headaches: Yes Psychiatric: Yes (two years ago was hospitalized at [facility]) Immunizations Current: Yes Seizures: No : 0 Para: 0 Miscarriage: 0 : 0 Social History Alcohol Use: No (OCC) Tobacco Use: No Substance Use: No Allergies-Medications (Allergen,Severity, Reaction): Coded Allergies: No Known Allergies (Verified Adverse Reaction, Unknown, 06/06/17) Reported Meds & Prescriptions Reported Meds & Active Scripts Active Trazodone (Trazodone HCl) 50 Mg Tab 50 Mg PO HS Macrobid (Nitrofurantoin Monoh/Nitrofur Macro) 100 Mg Cap 100 Mg PO BID 5 Days Trazodone (Trazodone HCl) 50 Mg Tab 50 Mg PO HS must see ron riddle for next refill Review of Systems Except as stated in HPI: all other systems reviewed are Neg Physical Exam Narrative GENERAL: Well-nourished, well-developed black female patient, in no acute distress SKIN: Warm and dry. HEAD: Atraumatic. Normocephalic. EYES: Pupils equal and round. No scleral icterus. No injection or drainage. ENT: Mucosa pink and moist. Airway patent. NECK: Trachea midline. CARDIOVASCULAR: Regular rate. RESPIRATORY: No accessory muscle use. GASTROINTESTINAL: Obese. PELVIC: Dried area of blood noted to groin area of pants. MUSCULOSKELETAL: No obvious deformities. No clubbing. No cyanosis. No edema. NEUROLOGICAL: Awake and alert. Oriented 3. No obvious cranial nerve deficits. Motor grossly within normal limits. Normal speech. PSYCHIATRIC: Appropriate mood and affect; insight and judgment normal. Data Data Last Documented VS Vital Signs Date Time Temp Pulse Resp B/P (MAP) Pulse Ox O2 Delivery O2 Flow Rate FiO2 06/07/17 12:41 98.7 64 16 124/69 (87) 97 Orders Orders Urinalysis - C+S If Indicated (06/07/17 12:43) Ed Urine Pregnancytest Poc (06/07/17 12:43) Urine Culture (06/07/17 15:25) Labs Laboratory Tests Test 06/07/17 15:25 Urine Color RED Urine Turbidity HAZY Urine pH 6.0 Urine Specific [place] 1.020 Urine Protein 30 mg/dL Urine Glucose (UA) NEG mg/dL Urine Ketones 10 mg/dL Urine Occult Blood LARGE Urine Nitrite NEG Urine Bilirubin NEG Urine Urobilinogen 2.0 MG/DL Urine Leukocyte Esterase MOD Urine RBC /hpf Urine WBC /hpf Urine Squamous Epithelial Cells 28 /hpf Urine Bacteria OCC /hpf Microscopic Urinalysis Comment CULTURE INDICATED MDM Medical Decision Making Medical Screen Exam Complete: Yes Emergency Medical Condition: Yes Medical Record Reviewed: Yes Differential Diagnosis Menses, vaginal bleeding, medical clearance Narrative Course 27-year-old female with vaginal bleeding 2 days. Patient is refusing physical exam, she is refusing labs to be drawn. She is requesting a male doctor. I discussed continued care and the patient just says that she wants to know why she is having vaginal bleeding. She doesn't know when her last menstrual period was I'm suspecting she is on her menstrual cycle. Patient made a comment stating that she felt anemic and lightheaded. I again discussed the need to check labs to rule out anemia and the patient refused. I discussed leaving AGAINST MEDICAL ADVICE and the patient would like to leave. AMA: The risks of leaving against medical advice without further evaluation treatment were discussed with the patient. These risks include cardiac dysfunction, cardiac dysrhythmia, possible heart attack, possible stroke or . The patient indicated understanding of these risks and appeared to have the capacity to make this decision. Diagnosis Primary Impression: Left against medical advice Disposition: 07 AGAINST MEDICAL ADVICE Araseli Lucas Jun 07, 2017 15:20
[2017-06-07 16:51] LABS: BACTERIA, URINE OCC /hpf; BILIRUBIN, URINE NEG (NEG); BLOOD, URINE LARGE (NEG); GLUCOSE,URINE NEG (NEG); KETONE, URINE 10 mg/dL (NEG); NITRITE,URINE NEG (NEG); SQUAMOUS EPITHELIAL CELL URINE 28 /hpf (0-5); URINE LEUKOCYTE ESTERASE MOD (NEG)
[2017-06-07 16:56] LABS: URINE COLOR RED (YELLW/STRAW)
== END 2017-06-07 16:09 | disposition left against medical advice (07) ==
LOC: NEPD 12:26
DX: N93.9 Abnormal uterine and vaginal bleeding, unspecified (principal); R82.71 Bacteriuria
CPT/HCPCS: 81001; 84703; 87086; 99283

== ENCOUNTER 2017-06-12 20:09 | Inpatient (IN) | payer MEDICARE, MEDICAID ==
[~2017-06-12] VITALS: Ht 170.2 cm; Wt 143.0 kg
[2017-06-12 20:20] VITALS: BP 137/65; PULSE 81; RESP 18; TEMP 99; O2SAT 100
[2017-06-12 21:33] VITALS: BP 138/87; PULSE 76; RESP 18; TEMP 98.2; O2SAT 100
[2017-06-12 22:47] LABS: AUTOMATED NEUTROPHIL # 7.1 TH/MM3 (1.8-7.7); BASOPHIL # 0.1 TH/MM3 (0-0.2); BASOPHIL % 0.7 % (0.0-2.0); EOSINOPHIL # 0.1 TH/MM3 (0-0.4); LYMPH % 17.4 % (9.0-44.0); LYMPHOCYTE # 1.6 TH/MM3 (1.0-4.8); MEAN CELL VOLUME 79.4 FL (80.0-100.0); MEAN CORPUSCULAR HEMOGLOBIN 27.8 PG (27.0-34.0); MEAN PLATELET VOLUME 9.1 FL (7.0-11.0); MONOCYTE # 0.5 TH/MM3 (0-0.9); NEUT % 75.9 % (16.0-70.0); PLATELET COUNT 291 TH/MM3 (150-450); RED BLOOD COUNT 4.66 MIL/MM3 (4.00-5.30); WHITE BLOOD COUNT 9.4 TH/MM3 (4.0-11.0)
[2017-06-12 23:01] LABS: ALBUMIN 3.7 GM/DL (3.4-5.0); ALT (GPT) 30 U/L (10-53); AST (GOT) 18 U/L (15-37); BICARBONATE 26.5 MEQ/L (21.0-32.0); BLOOD UREA NITROGEN 8 MG/DL (7-18); CALCIUM 8.8 MG/DL (8.5-10.1); CHLORIDE 106 MEQ/L (98-107); CREATININE 0.86 MG/DL (0.50-1.00); GLOMERULAR FILTRATION RATE 97 ML/MIN (>89); GLUCOSE,RANDOM 109 MG/DL (74-106); SODIUM (NA) 141 MEQ/L (136-145)
[2017-06-12 23:11] LABS: ALKALINE PHOSPHATASE 67 U/L (45-117); TOTAL BILIRUBIN ADULT 0.3 MG/DL (0.2-1.0); TOTAL PROTEIN 6.8 GM/DL (6.4-8.2)
--- NOTE | 2017-06-13 01:09 | PD ---
HPI Chief Complaint: Psychiatric Symptoms Time Seen by Provider: 00:58 Travel History International Travel<30 days: No Contact w/Intl Traveler<30days: No Traveled to known affect area: No History of Present Illness HPI 27-year-old female presents under a High act initiated by the Police Department. According to her paperwork, "has been known the throat medications relating to mental health, has not taken these medications in 3 months, and is known to wander into traffic." It is unclear who called the police. She reports that she does not want to talk about what happened tonight. History is limited. She does have a known history of bipolar disorder and she is prescribed trazodone which she takes on a regular basis. She reports that previously she was prescribed other medications however she does not know the name of the medications and she has been unable to get any medication refill at [facility] recently. She denies any drug, alcohol use, suicidal homicidal ideation, hallucinations. She has no other complaints at this time. [facility] Past Medical History Asthma: Yes ( A CHILD) Bipolar Disorder: Yes Cardiovascular Problems: Yes (Patient states she has felt a fluttering in the heart) Developmental Delay: No Diabetes: No Diminished Hearing: No Headaches: Yes Psychiatric: Yes (two years ago was hospitalized at [facility]) Immunizations Current: Yes Seizures: No ?: Unknown LMP: WILL NOT ANSWER : 0 Para: 0 Miscarriage: 0 : 0 Past Surgical History Surgical History: Unable to Obtain Social History Alcohol Use: No (OCC) Tobacco Use: No (WILL NOT ANSWER ) Substance Use: No Allergies-Medications (Allergen,Severity, Reaction): Coded Allergies: No Known Allergies (Verified Adverse Reaction, Unknown, 06/12/17) Reported Meds & Prescriptions Reported Meds & Active Scripts Active No Active Prescriptions or Reported Medications Review of Systems Except as stated in HPI: all other systems reviewed are Neg Physical Exam Narrative GENERAL: Well-developed well-nourished female in no acute distress SKIN: Warm and dry. HEAD: Atraumatic. Normocephalic. EYES: Pupils equal and round. No scleral icterus. No injection or drainage. ENT: No nasal bleeding or discharge. Mucous membranes pink and moist. NECK: Trachea midline. No JVD. CARDIOVASCULAR: Regular rate and rhythm. No murmur appreciated. RESPIRATORY: No accessory muscle use. Clear to auscultation. Breath sounds equal bilaterally. GASTROINTESTINAL: Abdomen soft, non-tender, nondistended. Hepatic and splenic margins not palpable. MUSCULOSKELETAL: No obvious deformities. No clubbing. No cyanosis. No edema. NEUROLOGICAL: Awake and alert. No obvious cranial nerve deficits. Motor grossly within normal limits. Normal speech. Data Data Last Documented VS Vital Signs Date Time Temp Pulse Resp B/P (MAP) Pulse Ox O2 Delivery O2 Flow Rate FiO2 06/12/17 21:33 98.2 76 18 138/87 (104) 100 Room Air Orders Orders Complete Blood Count With Diff (06/12/17 21:59) Comprehensive Metabolic Panel (06/12/17 21:59) Thyroid Stimulating Hormone (06/12/17 21:59) Ed Urine Pregnancytest Poc (06/12/17 21:59) Psych Screen (06/12/17 21:59) Drug Screen, Random Urine (06/12/17 21:59) Alcohol (Ethanol) (06/12/17 21:59) Labs Laboratory Tests Test 06/12/17 22:20 06/12/17 22:50 White Blood Count 9.4 TH/MM3 Red Blood Count 4.66 MIL/MM3 Hemoglobin 13.0 GM/DL Hematocrit 37.0 % Mean Corpuscular Volume 79.4 FL Mean Corpuscular Hemoglobin 27.8 PG Mean Corpuscular Hemoglobin Concent 35.0 % Red Cell Distribution Width 14.0 % Platelet Count 291 TH/MM3 Mean Platelet Volume 9.1 FL Neutrophils (%) (Auto) 75.9 % Lymphocytes (%) (Auto) 17.4 % Monocytes (%) (Auto) 5.0 % Eosinophils (%) (Auto) 1.0 % Basophils (%) (Auto) 0.7 % Neutrophils # (Auto) 7.1 TH/MM3 Lymphocytes # (Auto) 1.6 TH/MM3 Monocytes # (Auto) 0.5 TH/MM3 Eosinophils # (Auto) 0.1 TH/MM3 Basophils # (Auto) 0.1 TH/MM3 CBC Comment DIFF FINAL Differential Comment Blood Urea Nitrogen 8 MG/DL Creatinine 0.86 MG/DL Random Glucose 109 MG/DL Total Protein 6.8 GM/DL Albumin 3.7 GM/DL Calcium Level 8.8 MG/DL Alkaline Phosphatase 67 U/L Aspartate Amino Transf (AST/SGOT) 18 U/L Alanine Aminotransferase (ALT/SGPT) 30 U/L Total Bilirubin 0.3 MG/DL Sodium Level 141 MEQ/L Potassium Level 3.9 MEQ/L Chloride Level 106 MEQ/L Carbon Dioxide Level 26.5 MEQ/L Anion Gap 9 MEQ/L Estimat Glomerular Filtration Rate 97 ML/MIN Thyroid Stimulating Hormone 3rd Gen 0.991 uIU/ML Ethyl Alcohol Level LESS THAN 3 MG/DL Urine Opiates Screen NEG Urine Barbiturates Screen NEG Urine Amphetamines Screen NEG Urine Benzodiazepines Screen NEG Urine Cocaine Screen NEG Urine Cannabinoids Screen NEG MDM Medical Decision Making Medical Screen Exam Complete: Yes Emergency Medical Condition: Yes Medical Record Reviewed: Yes Differential Diagnosis Acute psychosis, adjustment reaction, bipolar disorder, schizophrenia, substance -induced mood disorder Narrative Course Mental health screening discussed with the patient. Psychiatric screen ordered. Lab work is unremarkable. The patient is medically cleared for psychiatric disposition. Diagnosis Primary Impression: Medical clearance for psychiatric admission Scripts No Active Prescriptions or Reported Meds Tj Bowman Jun 13, 2017 01:09
[2017-06-13 06:27] VITALS: BP 122/65; PULSE 63; RESP 18; TEMP 98.8; O2SAT 100
--- NOTE | 2017-06-13 17:53 | PD ---
History of Present Illness Chief Complaint: Psychiatric Symptoms Time Seen by Provider: 17:40 Travel History International Travel<30 Days: No Contact w/Intl Traveler<30days: No Known affected area: No Legal Status Legal Status: High Act High Act Signed By: Erika Gil History of Present Illness: History of Present Illness HPI 27-year-old female with history of schizoaffective disorder who presents under a High act initiated by the Police Department. According to her paperwork, "has been known to throw out medications relating to mental health, has not taken these medications in 3 months, and is known to wander into traffic." Her mother possibly call the police due to the patient being non-medication compliant for the last 3 months. Of note the patient has been to [facility] emergency department 3 times in the past 2 weeks. On 1 visit she requested a refill of the trazodone. Another visit she complained of vaginal bleeding but refused to have a female physician examine her as well as refused any lab work and left AMA. . Electronic medical record is reviewed. The patient has several admissions to [facility] psychiatry Department. Her last admission was in April 2017. Toxicology is negative. Patient is seen. Patient was overheard talking to someone in her room despite the fact that she is there by herself. When asked she denies that she is hearing any voices. She is alert, oriented female who is dressed in hospital attire with fair hygiene and grooming. The patient does not maintain any eye contact and states that she prefers not to look at people that she is talking to. When asked why she is here she states "my mom says that I need to take the medication. I also need to be on my medication that would balance me "she denies that she was trying to walk into traffic and states that that was in the past. She says that she hasn't had her medication in over 3 months and that she missed an appointment that was scheduled for her in June 08 at [facility]. She denies any hallucinatory process. She denies any suicidal or homicidal ideation , intent or plan. Attention is diminished. Concentration is decreased. Collateral information is obtained by nursing staff. The grandmother informs us that the patient has not been sleeping for the past several days and that she spends between 9 PM and 6 AM in the morning talking to herself in her room. . PFSH Past Medical History Asthma: Yes ( A CHILD) Bipolar Disorder: Yes Cardiovascular Problems: Yes (Patient states she has felt a fluttering in the heart) Developmental Delay: No Diabetes: No Diminished Hearing: No Headaches: Yes Psychiatric: Yes (two years ago was hospitalized at [facility]) Immunizations Current: Yes Seizures: No ?: Unknown LMP: WILL NOT ANSWER : 0 Para: 0 Miscarriage: 0 : 0 Past Surgical History Surgical History: Unable to Obtain Psychiatric History Psychiatric History Hx Psychiatric Treatment: Patient with a history of bipolar disorder. Last [facility] admission Apr 2017. History of Inpatient Treatment: Yes Guns or firearms in home: No Social History Single female who lives with her grandmother. Presently unemployed and on disability. 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 Hx Alcohol Use: No (OCC) Hx Tobacco Use: No (WILL NOT ANSWER ) Hx Substance Use: No Hx of Substance Use Treatment: No Allergies-Medications (Allergen,Severity, Reaction): Coded Allergies: No Known Allergies (Verified Adverse Reaction, Unknown, 06/12/17) Reported Meds & Prescriptions Reported Meds & Active Scripts Active No Active Prescriptions or Reported Medications Review of Systems Psychiatric: COMPLAINS OF: Hallucinations Except as stated in HPI: all other systems reviewed are Neg Mental Status Examination Appearance: Appropriate Consciousness: Alert Orientation: x4 Motor Activity: Normal gait Speech: Other (patient with a and odd intonation to her speech. Almost singing her answers.) Language: Adequate Fund of Knowledge: Adequate Attention and Concentration: Inadequate Memory: Unremarkable Mood: Appropriate Affect: Blunt Thought Process & Associations: Linear Thought Content: Other (she denies any hallucinations although she is heard talking to herself.) Hallucination Type: None ( denies) Delusion Type: None Suicidal Ideation: No Suicidal Plan: No Suicidal Intention: No Homicidal Ideation: No Homicidal Plan: No Homicidal Intention: No Insight: Poor Judgment: Poor MDM Medical Decision Making Medical Record Reviewed: Yes Assessment/Plan 27-year-old female with history of schizoaffective disorder who presents under a High act initiated by the Police Department. According to her paperwork, "has been known to throw out medications relating to mental health, has not taken these medications in 3 months, and is known to wander into traffic." Her mother possibly call the police due to the patient being non-medication compliant for the last 3 months. Of note this is her fourth visit to the ED in the last 2 weeks. The patient today is requesting to have her medication adjusted and said that she wants to feel balanced. She denied any auditory hallucinations although patient is observed talking to herself in her room. The patient at this time meets criteria for inpatient psychiatric hospitalization for further evaluation, for stabilization of current symptoms as well as for medication adjustment. Orders Orders Complete Blood Count With Diff (06/12/17 21:59) Comprehensive Metabolic Panel (06/12/17 21:59) Thyroid Stimulating Hormone (06/12/17 21:59) Ed Urine Pregnancytest Poc (06/12/17 21:59) Psych Screen (06/12/17 21:59) Drug Screen, Random Urine (06/12/17 21:59) Alcohol (Ethanol) (06/12/17 21:59) Diet Regular Basic (06/13/17 Breakfast) Diet Regular Basic (06/13/17 Lunch) Diet Regular Basic (06/13/17 Dinner) Results Vital Signs Date Time Temp Pulse Resp B/P (MAP) Pulse Ox O2 Delivery O2 Flow Rate FiO2 06/13/17 06:27 98.8 63 18 122/65 (84) 100 Room Air 06/12/17 21:33 98.2 76 18 138/87 (104) 100 Room Air 06/12/17 20:20 99.0 81 18 137/65 (89) 100 Laboratory Tests Test 06/12/17 22:20 06/12/17 22:50 White Blood Count 9.4 Red Blood Count 4.66 Hemoglobin 13.0 Hematocrit 37.0 Mean Corpuscular Volume 79.4 Mean Corpuscular Hemoglobin 27.8 Mean Corpuscular Hemoglobin Concent 35.0 Red Cell Distribution Width 14.0 Platelet Count 291 Mean Platelet Volume 9.1 Neutrophils (%) (Auto) 75.9 Lymphocytes (%) (Auto) 17.4 Monocytes (%) (Auto) 5.0 Eosinophils (%) (Auto) 1.0 Basophils (%) (Auto) 0.7 Neutrophils # (Auto) 7.1 Lymphocytes # (Auto) 1.6 Monocytes # (Auto) 0.5 Eosinophils # (Auto) 0.1 Basophils # (Auto) 0.1 CBC Comment DIFF FINAL Differential Comment Blood Urea Nitrogen 8 Creatinine 0.86 Random Glucose 109 Total Protein 6.8 Albumin 3.7 Calcium Level 8.8 Alkaline Phosphatase 67 Aspartate Amino Transf (AST/SGOT) 18 Alanine Aminotransferase (ALT/SGPT) 30 Total Bilirubin 0.3 Sodium Level 141 Potassium Level 3.9 Chloride Level 106 Carbon Dioxide Level 26.5 Anion Gap 9 Estimat Glomerular Filtration Rate 97 Thyroid Stimulating Hormone 3rd Gen 0.991 Ethyl Alcohol Level LESS THAN 3 Urine Opiates Screen NEG Urine Barbiturates Screen NEG Urine Amphetamines Screen NEG Urine Benzodiazepines Screen NEG Urine Cocaine Screen NEG Urine Cannabinoids Screen NEG Diagnosis Primary Impression: Schizoaffective disorder, bipolar type Admitting Information Admitting Physician Requests: Admit Prescriptions No Active Prescriptions or Reported Meds Jessi Peacock Jun 13, 2017 17:53
[2017-06-13 18:14] VITALS: BP 135/66; PULSE 68; RESP 16; O2SAT 97
[2017-06-13] MEDS ORDERED: ACETAMINOPHEN 325 MG TAB PO PRN (18:15)
[2017-06-13] MEDS ORDERED: ALUMINUM/MAGNESIUM/SIMETH 30 ML CUP PO PRN (18:15)
[2017-06-13] MEDS ORDERED: MAGNESIUM HYDROXIDE SUSP 30 ML CUP PO PRN (18:15)
[2017-06-13 20:30] VITALS: BP 140/76; PULSE 82; RESP 18; TEMP 98.7; O2SAT 99
[2017-06-14 06:32] VITALS: BP 123/73; PULSE 65; RESP 19; TEMP 97.8; O2SAT 100
--- NOTE | 2017-06-14 10:35 | HHI.HP ---
Provisional Diagnosis Admission Date Jun 13, 2017 at 18:09 [place] I. 1. Schizoaffective disorder, bipolar type, acute exacerbation [place] II. Deferred Certification of Person's Competence To Provide Express and Informed Consent I have personally examined Jamee Shen , a person being served at [facility] on, Jun 14, 2017 10:35. Express and informed consent means consent voluntarily given in writing, by a competent person, after sufficient explanation and disclosure of the subject matter involved to enable the person to make a knowing and willful decision without any element of force, fraud, deceit, duress, or other form of constraint or coercion. This person is 18 years of age or older, is not now known to be incompetent to consent to treatment with a guardian advocate, and does not have a health care surrogate or proxy currently making medical treatment decisions. I have found this person to be one of the following: [x] Competent to provide express and informed consent, as defined above, for voluntary admission to this facility and is competent to provide express and informed consent for treatment. He/she has the consistent capacity to make well reasoned, willful, and knowing decisions concerning his or her medical or mental health treatment. The person fully and consistently understands the purpose of the admission for examination/placement and is fully capable of personally exercising all rights assured [place] Incompetent to provide express and informed consent to voluntary admission, and this is incompetent to provide express and informed consent to treatment. The person must be transferred to involuntary status and a petition for a guardian advocate filed with the Circuit Court. [] Refusing to provide express and informed consent to voluntary admission but is competent to provide express and informed consent for treatment. The person must be discharged or transferred to involuntary status. Form shall be completed within 24 hours of a person's arrival at the receiving facility and filed in the clinical record of each person: 1. Admitted on a voluntary basis 2. Permitted to provide express and informed consent to his/her own treatment 3. Allowed to transfer from involuntary to voluntary status 4. Prior to permitting a person to consent to his or her own treatment after having been previously found incompetent to consent to treatment. History of Present Illness Capacity: Has Capacity Psych Chief Complaint: "I just want my head to get better." HPI Ms. Shen is a 27-year-old female with a history of schizoaffective disorder who presents under a High act from law enforcement alleging that the patient has been nonadherent with medications for 3 months and "has been known to wander into traffic." Patient was seen by the psychiatric nurse practitioner in the emergency department. Reviewing the electronic medical record, I note the patient was admitted chiefly under my care in April of this year. Patient seen and examined with nurse. Chart reviewed. Case discussed with nursing staff. On my examination today, the patient presents with a somatic preoccupation. She complains of "rashes and itches in my vagina and headaches and eye aches and pooping problems, geremias solid but loose. I feel embolisms all over my body." She does not appear to be in any physical distress, and in context these complaints have a delusional quality. No other delusional material elicited, although the patient is somewhat guarded. She denies AVH but appears internally preoccupied. Mood is depressed. She denies any hopelessness or worthlessness. Sleep is fair. Concentration and focus are poor. She denies any suicidal or homicidal ideation. No hypomanic or manic symptoms elicited. Remainder of the psychiatric ROS is negative. Somatic complaints as above. Past psychiatric history: The patient has a previous diagnosis of schizoaffective disorder. She reports that she has previously been on Risperdal , Cogentin and trazodone, although she has been off these medications for at least 2 weeks by her report. During her April admission, patient had told me the Risperdal was too sedating, but now she says she would like to return to this agent. Denies any interval psychiatric admissions or suicide attempts. Family history: The patient denies any family history of mental illness. Chemical dependency history: The patient denies any abuse of drugs or alcohol. Social history: The patient lives with her grandmother. She is single with no children. She is high school educated. She collects [employer]. She denies any or legal history. Denies any access to guns or firearms. She is a Evangelical. She denies any history of abuse. Review of Systems ROS Limitations: Psychotic Except as stated in HPI: all other systems reviewed are Neg Past Family Social History Coded Allergies: No Known Allergies (Verified Adverse Reaction, Unknown, 06/12/17) Past Medical History See electronic medical record Discontinued Scripts Trazodone (Trazodone) 50 Mg Tab, 50 MG PO HS for Control Depression, #10 TAB 0 Refills Prov:Robert Schneider MD 06/06/17 Nitrofurantoin Monohydrate Macrocrystals (Macrobid) 100 Mg Cap, 100 MG PO BID for Infection for 5 Days, #10 CAP 0 Refills Prov:Mariano Urban MD 06/05/17 Trazodone (Trazodone) 50 Mg Tab, 50 MG PO HS for Control Depression, #30 TAB 0 Refills must see ron riddle for next refill Prov:Abimael Abreu MD 04/15/17 Current Medications Medications (Trade) Dose Ordered Sig/Gia Route Start Time Stop Time Status Last Admin (Tylenol) 650 mg Q4H PRN PO 06/13/17 18:15 (Milk Of Magnesia Liq) 30 ml DAILY PRN PO 06/13/17 18:15 (Mag-Al Plus Susp Liq) 30 ml Q6H PRN PO 06/13/17 18:15 Patient's Strengths (min. 2) In a monitored setting. Verbally fluent. Physical Exam Physical exam completed by ED provider. On my examination today, the patient appears to be in no acute physical distress. No motor abnormalities noted. Eye contact is poor. Labs and vitals reviewed: Vital Signs Vital Signs Date Time Temp Pulse Resp B/P (MAP) Pulse Ox O2 Delivery O2 Flow Rate FiO2 06/14/17 06:32 97.8 65 19 123/73 (90) 100 06/13/17 06:27 Room Air Lab Results Item Value Date Time White Blood Count 9.4 TH/MM3 06/12/17 2220 Hemoglobin 13.0 GM/DL 06/12/17 2220 Platelet Count 291 TH/MM3 06/12/17 2220 Sodium Level 141 MEQ/L 06/12/17 2220 Potassium Level 3.9 MEQ/L 06/12/17 2220 Chloride Level 106 MEQ/L 06/12/17 2220 Carbon Dioxide Level 26.5 MEQ/L 06/12/17 2220 Blood Urea Nitrogen 8 MG/DL 06/12/17 2220 Creatinine 0.86 MG/DL 06/12/17 2220 Estimat Glomerular Filtration Rate 97 ML/MIN 06/12/17 2220 Aspartate Amino Transf (AST/SGOT) 18 U/L 06/12/17 222 Alanine Aminotransferase (ALT/SGPT) 30 U/L 06/12/172219 Alkaline Phosphatase 67 U/L 06/12/172219 Thyroid Stimulating Hormone 3rd Gen 0.991 uIU/ML 06/12/172219 Urine Opiates Screen NEG 06/12/17 225 Urine Barbiturates Screen NEG 06/12/172249 Urine Amphetamines Screen NEG 06/12/172249 Urine Benzodiazepines Screen NEG 06/12/172249 Urine Cannabinoids Screen NEG 06/12/172249 Urine Cocaine Screen NEG 06/12/172249 Ethyl Alcohol Level LESS THAN 3 MG/DL 06/12/172219 EKG from April sinus rhythm QTc 384ms. POC test negative. Mental Status Examination Appearance: Appropriate Consciousness: Alert Orientation: x4 Motor Activity: Other (No motor abnormalities noted) Speech: Unremarkable Language: Adequate Fund of Knowledge: Adequate Attention and Concentration: Easily Distracted Memory: Unremarkable Mood: Appropriate Affect: Blunt Thought Process & Associations: Intact, Logical, Linear Thought Content: Delusional Hallucination Type: Other (Somatic. Guarded.) Delusion Type: None Suicidal Ideation: No Suicidal Plan: No Suicidal Intention: No Homicidal Ideation: No Homicidal Plan: No Homicidal Intention: No Insight: Fair Judgment: Impulsive Assessment & Plan Problem List: (1) Schizoaffective disorder, bipolar type ICD Codes: F25.0 - Schizoaffective disorder, bipolar type Assessment & Plan 27-year-old female with psychiatric history as detailed above presently admitted to the inpatient psychiatric unit under a High act. On my examination today the patient reports that she has been nonadherent with psychotropic medications for several weeks at least. In the setting of this medication nonadherence, I suspect that she has experienced some degree of psychotic decompensation. She would like to return to Risperdal therapy, and in light of issues with adherence, I have suggested to patient that we transition to WILL antipsychotic once we have confirmed good tolerability and efficacy from the oral Risperdal. Patient requires psychiatric hospitalization at this time for observation and stabilization. Admit inpatient. Voluntary status. Risperdal 1 mg twice daily for psychosis with plans to titrate to effect. To consider Risperdal Consta or Invega Sustenna. Cogentin 1 mg twice daily for side effect management with additional Cogentin available as needed. Trazodone 50 mg at bedtime for sleep. Ativan as needed for anxiety. R/B/A for medication changes discussed with patient. Consult to the hospitalist for patient's multiple physical complaints, although I do suspect there may be a psychotic basis to at least some of these. Vitals every shift. Counselor to see and obtain collateral information. Disposition planning. Estimated length of stay: 5-7 days. Discharge Planning Pending psychiatric stabilization Request HC Surrog/Guard Advoc?: No Ernesto Mahmood MD Jun 14, 2017 10:35
[2017-06-14] MEDS ORDERED: BENZTROPINE MESYLATE 2 MG/2 ML VIAL IM PRN (10:45)
[2017-06-14] MEDS ORDERED: LORazepam 1 MG TAB PO PRN (10:45)
[2017-06-14] MEDS ORDERED: LORazepam 2 MG/ML VIAL IM PRN (10:45)
[2017-06-14] MEDS ORDERED: BENZTROPINE MESYLATE 1 MG TAB PO PRN (10:45)
[2017-06-14] MEDS: BENZTROPINE MESYLATE 1 MG TAB PO SCH ×2 (12:22→20:54)
[2017-06-14] MEDS: risperiDONE 1 MG TAB PO SCH ×2 (12:22→20:54)
--- NOTE | 2017-06-14 15:35 | PD.CONS ---
HPI Service [facility] Hospitalists Consult Requested By Dr. Mahmood Reason for Consult Multiple somatic complaints Primary Care Physician No Primary Care Physician Diagnoses: (1) Schizoaffective disorder, bipolar type History of Present Illness The patient is a 27-year-old female admitted to inpatient psychiatry under High act for psychosis. She has history of schizoaffective disorder and has been off of her medications recently. Hospitalist consultation was requested for evaluation of multiple somatic complaints. The patient states that she is having itching on her left forearm. She also reports vaginal itching "and bumps like crabs". She states that she needs to be on Coumadin because she has multiple emboli. She states that she does not have any known history of blood clots and has never been on Coumadin. She states that she had a period recently that had some blood clots in it and that is why she needs to be on Coumadin. She reports headaches. Denies vision changes. Denies chest pain or dyspnea. She also reports loose stools. Nursing states that she has not had any diarrhea today. Review of Systems Constitutional: DENIES: Fever, Chills, Night Sweats Eyes: DENIES: Blurred vision, Vision loss Ears, nose, mouth, throat: DENIES: Hearing loss Respiratory: DENIES: Cough, Wheezing, Sputum production, Shortness of breath Cardiovascular: DENIES: Chest pain, Palpitations, Dyspnea on Exertion, Lower Extremity Edema Gastrointestinal: COMPLAINS OF: Diarrhea, DENIES: Abdominal pain, Constipation , Nausea, Vomiting Genitourinary: DENIES: Urinary frequency, Urinary incontinence, Urgency, Hematuria, Dysuria, Nocturia Musculoskeletal: DENIES: Joint pain, Muscle aches Integumentary: COMPLAINS OF: Pruritus, Rash Hematologic/lymphatic: DENIES: Bruising Neurologic: COMPLAINS OF: Headache Past Family Social History Allergies: Coded Allergies: No Known Allergies (Verified Adverse Reaction, Unknown, 06/12/17) Past Medical History Schizoaffective disorder Past Surgical History Denies Reported Medications None Family History Thyroid disease Social History Occasional alcohol use. Denies tobacco or illicit drug use. Physical Exam Vital Signs Vital Signs Date Time Temp Pulse Resp B/P (MAP) Pulse Ox O2 Delivery O2 Flow Rate FiO2 06/14/17 06:32 97.8 65 19 123/73 (90) 100 06/13/17 20:30 98.7 82 18 140/76 (97) 99 3/12/18 20:20 06/13/17 18:14 68 16 135/66 (89) 97 Physical Exam Examined in the presence of the nurse. GENERAL: Morbidly obese female in no acute distress. HEENT: Normocephalic, atraumatic. Pupils equal, round and reactive. Extraocular movements intact. No scleral icterus. No injection or drainage. Oropharynx is clear. Mucous membranes are moist. CARDIOVASCULAR: Regular rate and rhythm without murmurs, gallops, or rubs. RESPIRATORY: Clear to auscultation. No wheezes, rales, or rhonchi. Breathing is non-labored. GASTROINTESTINAL: Abdomen soft, non-tender, nondistended. EXTREMITIES: No lower extremity edema. No calf tenderness. PSYCH: Alert and oriented x 3. SKIN: Small patch of excoriation on the left forearm. : External pelvic exam reveals no rash or lesions. Result Diagram: 06/12/17221906/12/172219 Assessment and Plan Assessment and Plan 1. Schizoaffective disorder, psychosis: Patient admitted under High act. Management per psychiatry. 2. Multiple somatic complaints. I suspect that many of these symptoms are related to her psychosis. For example, the patient states that she believes that she has multiple emboli in her veins and needs to be on Coumadin, although she has no known history of blood clots and states that she has never been on anticoagulation in the past. She also does not have any clear signs on exam that would indicate blood clots. Labs reviewed. Vital signs are stable. 3. Pruritus: Patient reports itching in multiple locations, and has a patch on her left forearm that indicates excoriation. This could be treated symptomatically with topical Benadryl cream, however it is possible that this is neurodermatitis secondary to her psychosis. [facility] will sign off. Reconsult if necessary. Darwin Healy MD Jun 14, 2017 15:35
[2017-06-14 18:34] VITALS: BP 128/71; PULSE 68; RESP 18; TEMP 98.3; O2SAT 99
[2017-06-14] MEDS: traZODone HCL 50 MG TAB PO SCH (20:54)
[2017-06-15 06:01] VITALS: BP 129/62; PULSE 77; RESP 16; TEMP 97.7; O2SAT 98
[2017-06-15] MEDS: risperiDONE 1 MG TAB PO SCH ×2 (08:51→20:11)
[2017-06-15] MEDS: BENZTROPINE MESYLATE 1 MG TAB PO SCH ×2 (08:52→20:11)
--- NOTE | 2017-06-15 11:28 | HHI.PYPN ---
Subjective Chief Complaint: "I just want my head to get better." Remarks Patient seen and examined with nurse. Chart reviewed. Case discussed with nursing staff. On my exam today, patient continues to exhibit somatic preoccupation. She denies AVH but remains somewhat internally stimulated. She does complain of some AH overnight. No SI or HI. No side effects from medications. Review of Systems ROS Limitations: Psychotic, Poor Historian Except as stated in HPI: all other systems reviewed are Neg Mental Status Examination Appearance: Appropriate Consciousness: Alert Orientation: x4 Motor Activity: Other (no abnormal motor movements noted.) Speech: Unremarkable Language: Adequate Fund of Knowledge: Adequate Attention and Concentration: Easily Distracted Memory: Unremarkable Mood: Appropriate Affect: Blunt Thought Process & Associations: Intact, Logical, Linear Thought Content: Delusional Hallucination Type: Other (internally stimulated) Delusion Type: Paranoid (mild), Other (somatic preoccupation.) Suicidal Ideation: No Suicidal Plan: No Suicidal Intention: No Homicidal Ideation: No Homicidal Plan: No Homicidal Intention: No Insight: Fair Judgment: Impulsive Results Labs Labs reviewed. Vitals/IOs Vital Signs Date Time Temp Pulse Resp B/P (MAP) Pulse Ox O2 Delivery O2 Flow Rate FiO2 06/15/17 06:01 97.7 77 16 129/62 (84) 98 06/13/17 06:27 Room Air Assessment & Plan Problem List: (1) Schizoaffective disorder, bipolar type ICD Codes: F25.0 - Schizoaffective disorder, bipolar type Assessment & Plan Titrate Risperdal to 2 mg twice daily to target psychotic symptoms. Continue other psychotropics as ordered. Hospitalist input noted and appreciated. Continue other medications and care as ordered. Justification for Cont. Inpt. Medication changes. Impairment in reality construction. Risk for decompensation in less restrictive environment. Discharge Planning Pending psychiatric stabilization. Request HC Surrog/Guard Advoc?: No Ernesto Mahmood MD Jun 15, 2017 11:28
[2017-06-15] MEDS: traZODone HCL 50 MG TAB PO SCH (20:11)
[2017-06-16 05:53] VITALS: BP 115/66; PULSE 64; RESP 18; TEMP 97.9; O2SAT 98
[2017-06-16] MEDS: risperiDONE 1 MG TAB PO SCH (09:16)
[2017-06-16] MEDS: BENZTROPINE MESYLATE 1 MG TAB PO SCH (09:16)
--- NOTE | 2017-06-16 11:42 | HHI.PYPN ---
Subjective Chief Complaint: "I just want my head to get better." Remarks Patient seen and examined with nurse. Chart reviewed. Case discussed with nursing staff. Nurse observes poor eye contact in the patient and complaints of dysuria. On my examination today, the patient continues to exhibit a somatic preoccupation, suspected to be delusional in nature. For example, she hears her ankle click with flexion during our interview and articulates a belief that her "bones are cracking." She is somewhat irritable and dysphoric. She complains that Cogentin is causing headache and blurry vision. Unclear if this, too, is related to somatic preoccupation. Patient wishes to discontinue scheduled anticholinergic, but I cautioned the patient that this may cause exacerbation of physical symptoms, namely EPS. I suggested instead that we replace the Cogentin with a different medication such as Artane. Patient continues to insist that we discontinue the Cogentin but is willing to accept p.r.n. Artane, should the need arise. Denies side effects from medications otherwise. Review of Systems ROS Limitations: Psychotic, Poor Historian Except as stated in HPI: all other systems reviewed are Neg Mental Status Examination Appearance: Appropriate Consciousness: Alert Orientation: x4 Motor Activity: Other (no motor abnormalities noted. No hand tremor, no dystonia, no dyskinesia noted.) Speech: Unremarkable Language: Adequate Fund of Knowledge: Adequate Attention and Concentration: Easily Distracted Memory: Unremarkable Mood: Appropriate Affect: Blunt Thought Process & Associations: Intact, Logical, Linear Thought Content: Delusional Hallucination Type: Other (remains somewhat internally stimulated) Delusion Type: Paranoid (mild), Other (somatic preoccupation.) Suicidal Ideation: No Suicidal Plan: No Suicidal Intention: No Homicidal Ideation: No Homicidal Plan: No Homicidal Intention: No Insight: Fair Judgment: Impulsive Results Labs Labs reviewed. No new labs. Vitals/IOs Vital Signs Date Time Temp Pulse Resp B/P (MAP) Pulse Ox O2 Delivery O2 Flow Rate FiO2 06/16/17 05:53 97.9 64 18 115/66 (82) 98 06/13/17 06:27 Room Air Assessment & Plan Problem List: (1) Schizoaffective disorder, bipolar type ICD Codes: F25.0 - Schizoaffective disorder, bipolar type Assessment & Plan Titrate Risperdal to 3 mg twice daily to target psychotic symptoms. To consider long-acting injectable antipsychotic. Discontinue Cogentin per patient preference and replace with Artane p.r.n.. Check a UA. Continue to monitor on the inpatient unit. Continue other medications and care as ordered. Justification for Cont. Inpt. Medication changes. Impairment in reality construction. Risk for decompensation in less restrictive environment. Discharge Planning Pending psychiatric stabilization. Request HC Surrog/Guard Advoc?: No Ernesto Mahmood MD Jun 16, 2017 11:42
[2017-06-16] MEDS ORDERED: TRIHEXYPHENIDYL HCL 2 MG TAB PO PRN (11:45)
[2017-06-16 18:13] LABS: BILIRUBIN, URINE NEG (NEG); BLOOD, URINE NEG (NEG); GLUCOSE,URINE NEG (NEG); KETONE, URINE NEG (NEG); MUCUS URINE FEW /lpf (OCC); NITRITE,URINE NEG (NEG); SQUAMOUS EPITHELIAL CELL URINE 9 /hpf (0-5); URINE COLOR YELLOW (YELLW/STRAW); URINE LEUKOCYTE ESTERASE TRACE (NEG)
[2017-06-16 18:28] VITALS: BP 121/57; PULSE 87; RESP 18; TEMP 98.3; O2SAT 100
[2017-06-16] MEDS ORDERED: risperiDONE 3 MG TAB PO SCH (21:00)
[2017-06-16] MEDS: traZODone HCL 50 MG TAB PO SCH (21:00)
[2017-06-17 05:37] VITALS: BP 110/59; PULSE 72; RESP 16; TEMP 97.5
--- NOTE | 2017-06-17 09:59 | HHI.PYPN ---
Subjective Chief Complaint: "I just want my head to get better." Remarks Patient seen and examined with nurse. Chart reviewed. Case discussed with nursing staff. Case discussed in treatment team. Nursing notes that patient refused Risperdal last evening. When I asked the patient about the medication refusal, she says that she did so because she wants to start long-acting injectable antipsychotic. She feels that the Risperdal was helping with her psychiatric symptoms. She denies any SI, HI or AVH. She is less somatically preoccupied today. We review her long-acting injectable options and given her preference not to have to take oral psychotropics going forward we settle on Invega Sustenna as this agent does not require oral supplementation. She would like to speak with a counselor about possible assisted living placement, and I have left a voicemail for the counselor. Denies side effects from medications. No physical complaints. Review of Systems Except as stated in HPI: all other systems reviewed are Neg Mental Status Examination Appearance: Appropriate, Other (poor eye contact) Consciousness: Alert Orientation: x4 Motor Activity: Other (no hand tremor, no cogwheeling, no other motor abnormalities noted) Speech: Unremarkable Language: Adequate Fund of Knowledge: Adequate Attention and Concentration: Adequate Memory: Unremarkable Mood: Appropriate Affect: Blunt (remains blunted) Thought Process & Associations: Intact, Logical, Linear Thought Content: Delusional Hallucination Type: None Delusion Type: Other (somatic preoccupation, decreasing) Suicidal Ideation: No Suicidal Plan: No Suicidal Intention: No Homicidal Ideation: No Homicidal Plan: No Homicidal Intention: No Insight: Fair Judgment: Impulsive Results Labs Labs reviewed. JULIAN pagan. Vitals/IOs Vital Signs Date Time Temp Pulse Resp B/P (MAP) Pulse Ox O2 Delivery O2 Flow Rate FiO2 06/17/17 05:37 97.5 72 16 110/59 (76) 06/16/17 18:28 100 Assessment & Plan Problem List: (1) Schizoaffective disorder, bipolar type ICD Codes: F25.0 - Schizoaffective disorder, bipolar type Assessment & Plan Discontinue oral Risperdal and initiate Invega Sustenna 234 mg IM today. Plan for booster dose of Invega Sustenna next week. Continue to monitor on the inpatient unit. Continue other medications and care as ordered. Justification for Cont. Inpt. Med changes. Risk for decompensation in less restrictive environment. Discharge Planning Possible placement. Possible discharge middle of next week. Request HC Surrog/Guard Advoc?: No Ernesto Mahmood MD Jun 17, 2017 09:59
[2017-06-17] MEDS ORDERED: PALIPERIDONE PALMITATE 234 MG/1.5 ML SYRINGE IM ONE (11:00)
[2017-06-17 18:09] VITALS: BP 116/59; PULSE 87; RESP 16; TEMP 97.6; O2SAT 100
[2017-06-17] MEDS: traZODone HCL 50 MG TAB PO SCH (22:30)
[2017-06-18 05:36] VITALS: BP 111/64; PULSE 84; RESP 18; TEMP 98; O2SAT 95
--- NOTE | 2017-06-18 13:28 | HHI.PYPN ---
Subjective Chief Complaint: "I just want my head to get better." Remarks Patient was seen and case discussed with nursing. Patient is guarded during the interview. She is holding up a magazine so we don't make eye contact. Affect is apathetic, does not endorse any stressors. Nursing she may be talking to herself. She does deny auditory visual hallucinations. His compliant with her medications and tolerating them well Mental Status Examination Appearance: Appropriate, Other (poor eye contact) Consciousness: Alert Orientation: x4 Motor Activity: Other (no hand tremor, no cogwheeling, no other motor abnormalities noted) Speech: Unremarkable Language: Adequate Fund of Knowledge: Adequate Attention and Concentration: Adequate Memory: Unremarkable Mood: Appropriate Affect: Blunt (remains blunted) Thought Process & Associations: Intact, Logical, Linear Thought Content: Delusional Hallucination Type: None Delusion Type: Other (somatic preoccupation, decreasing) Suicidal Ideation: No Suicidal Plan: No Suicidal Intention: No Homicidal Ideation: No Homicidal Plan: No Homicidal Intention: No Insight: Fair Judgment: Impulsive Results Vitals/IOs Vital Signs Date Time Temp Pulse Resp B/P (MAP) Pulse Ox O2 Delivery O2 Flow Rate FiO2 06/18/17 05:36 98.0 84 18 111/64 (80) 95 Assessment & Plan Problem List: (1) Schizoaffective disorder, bipolar type ICD Codes: F25.0 - Schizoaffective disorder, bipolar type Assessment & Plan Continue current treatment plan Justification for Cont. Inpt. Patient will decompensate in a less restrictive setting Request HC Surrog/Guard Advoc?: No Ric Moctezuma DO Jun 18, 2017 13:28
[2017-06-18] MEDS: traZODone HCL 50 MG TAB PO SCH (21:00)
[2017-06-19 05:13] VITALS: BP 134/68; PULSE 83; RESP 16; TEMP 97.8; O2SAT 98
--- NOTE | 2017-06-19 11:01 | HHI.PYPN ---
Subjective Chief Complaint: "I just want my head to get better." Remarks Patient was seen and case discussed nursing. Patient is oppositional and cooperative during the interview. She is laying in bed on her back with her eyes closed. Giving minimal answers. Compliant with medications. No behavioral outbursts Mental Status Examination Appearance: Appropriate, Other (poor eye contact) Consciousness: Alert Orientation: x4 Motor Activity: Other (no hand tremor, no cogwheeling, no other motor abnormalities noted) Speech: Unremarkable Language: Adequate Fund of Knowledge: Adequate Attention and Concentration: Adequate Memory: Unremarkable Mood: Appropriate Affect: Blunt (remains blunted) Thought Process & Associations: Intact, Logical, Linear Thought Content: Delusional (could be responding to internal stimuli) Hallucination Type: None Delusion Type: Other (somatic preoccupation, decreasing) Suicidal Ideation: No Suicidal Plan: No Suicidal Intention: No Homicidal Ideation: No Homicidal Plan: No Homicidal Intention: No Insight: Fair Judgment: Impulsive Results Vitals/IOs Vital Signs Date Time Temp Pulse Resp B/P (MAP) Pulse Ox O2 Delivery O2 Flow Rate FiO2 06/19/17 05:13 97.8 83 16 134/68 (90) 98 Intake and Output 06/19/17 06/19/17 06/20/17 08:00 16:00 00:00 Intake Total 360 ml Balance 360 ml Assessment & Plan Problem List: (1) Schizoaffective disorder, bipolar type ICD Codes: F25.0 - Schizoaffective disorder, bipolar type Assessment & Plan Continue current treatment plan Justification for Cont. Inpt. Patient will decompensate in a less restrictive setting Request HC Surrog/Guard Advoc?: No Ric Moctezuma DO Jun 19, 2017 11:01
[2017-06-19 17:06] VITALS: BP 134/68; PULSE 83; RESP 16; TEMP 98.1; O2SAT 98
[2017-06-19 18:32] VITALS: BP 111/67; PULSE 82; RESP 18; TEMP 98.1; O2SAT 99
[2017-06-19] MEDS: traZODone HCL 50 MG TAB PO SCH (21:22)
[2017-06-20 06:27] VITALS: BP 117/58; PULSE 74; RESP 17; TEMP 97.6; O2SAT 96
[2017-06-20] MEDS ORDERED: PALI156P IM (10:43)
[2017-06-20] MEDS ORDERED: TRAZ50TA12 PO (10:43)
[2017-06-20] MEDS ORDERED: TRIH2 PO (10:43)
--- NOTE | 2017-06-20 10:43 | HHI.DS ---
Psychiatry Discharge Summary Inpatient Psychiatric care?: Yes Advance Directive: No Reason Not Provided: not interested Mental Health AdvanceDirective: No Health Care Proxy: No Admission Admission Date Jun 13, 2017 at 18:09 Admission Diagnosis: (1) Schizoaffective disorder, bipolar type ICD Code: F25.0 - Schizoaffective disorder, bipolar type Brief History Ms. Shen is a 27-year-old female with a history of schizoaffective disorder who presents under a High act from law enforcement alleging that the patient has been nonadherent with medications for 3 months and "has been known to wander into traffic." Patient was seen by the psychiatric nurse practitioner in the emergency department. Reviewing the electronic medical record, I note the patient was admitted chiefly under my care in April of this year. Patient seen and examined with nurse. Chart reviewed. Case discussed with nursing staff. On my examination today, the patient presents with a somatic preoccupation. She complains of "rashes and itches in my vagina and headaches and eye aches and pooping problems, geremias solid but loose. I feel embolisms all over my body." She does not appear to be in any physical distress, and in context these complaints have a delusional quality. No other delusional material elicited, although the patient is somewhat guarded. She denies AVH but appears internally preoccupied. Mood is depressed. She denies any hopelessness or worthlessness. Sleep is fair. Concentration and focus are poor. She denies any suicidal or homicidal ideation. No hypomanic or manic symptoms elicited. Remainder of the psychiatric ROS is negative. Somatic complaints as above. Past psychiatric history: The patient has a previous diagnosis of schizoaffective disorder. She reports that she has previously been on Risperdal , Cogentin and trazodone, although she has been off these medications for at least 2 weeks by her report. During her April admission, patient had told me the Risperdal was too sedating, but now she says she would like to return to this agent. Denies any interval psychiatric admissions or suicide attempts. Family history: The patient denies any family history of mental illness. Chemical dependency history: The patient denies any abuse of drugs or alcohol. Social history: The patient lives with her grandmother. She is single with no children. She is high school educated. She collects Manta. She denies any or legal history. Denies any access to guns or firearms. She is a Gnosticist. She denies any history of abuse. Tobacco Use In Past 30 Days: No Tobacco Past 30 Days Alcohol Use: Never Hospital Course Patient was admitted to a locked, inpatient psychiatric unit. A general medical consultation was obtained. Appropriate precautions were in place throughout patient's hospital stay. Patient was seen and examined on the unit by psychiatry and also visited by counselor. Psychotropic medications were adjusted. The patient was given the initial dose of Invega Sustenna and booster dose was ordered on discharge. Patient had improvement in presenting psychiatric symptomatology during the course of her hospital stay. There was no evidence of any suicidality or homicidality on the inpatient unit. The patient remained in good behavioral control, although she was noted to be somewhat somatic and faultfinding. On the day of discharge: Patient seen and examined with nurse. Chart reviewed. Case discussed with nursing staff. No behavioral disturbance noted overnight although the patient does remain somewhat somatic per nursing report. On my examination today, the patient is requesting discharge from the inpatient psychiatric unit today. She denies any suicidal or homicidal ideation, intent or plan on direct questioning and contracts for safety. I can elicit no depressive or hypomanic/manic symptoms. She denies any audiovisual hallucinations. I can elicit no frankly delusional beliefs. She does continue to exhibit a somatic preoccupation, but this is improved versus admission. She denies side effects from medications. Education provided regarding patient's discharge medication regimen including the need for follow-up Invega Sustenna injections. Suicide and violence risk assessment on day of discharge both suggest lower imminent risk, and the patient 's level of function is adequate for outpatient care. The patient does not meet criteria for involuntary psychiatric hospitalization at this time. She is requesting discharge from the inpatient psychiatric unit today, and I have no basis to retain her over her objection. Patient will be discharged today with psychiatric follow-up as arranged by counselor. Patient is also to follow-up with primary care. I have counseled the patient to abstain from substances of abuse. I have counseled the patient regarding warning signs need to return to the psychiatric emergency room as part of a general safety plan. Results Blood Pressure 117 / 58 Vital Signs Date Time Temp Pulse Resp B/P (MAP) Pulse Ox O2 Delivery O2 Flow Rate FiO2 06/20/17 06:27 97.6 74 17 117/58 (71) 96 Item Value Date Time White Blood Count 9.4 TH/MM3 06/12/17 2220 Hemoglobin 13.0 GM/DL 06/12/17 2220 Platelet Count 291 TH/MM3 06/12/17 2220 Sodium Level 141 MEQ/L 06/12/17 2220 Potassium Level 3.9 MEQ/L 06/12/17 2220 Chloride Level 106 MEQ/L 06/12/17 2220 Carbon Dioxide Level 26.5 MEQ/L 06/12/17 2220 Blood Urea Nitrogen 8 MG/DL 06/12/17 2220 Creatinine 0.86 MG/DL 06/12/17 2220 Estimat Glomerular Filtration Rate 97 ML/MIN 06/12/17 2220 Random Glucose 109 MG/DL H 06/12/17 2220 Aspartate Amino Transf (AST/SGOT) 18 U/L 06/12/17 2220 Alanine Aminotransferase (ALT/SGPT) 30 U/L 06/12/17 2220 Alkaline Phosphatase 67 U/L 06/12/17 2220 Thyroid Stimulating Hormone 3rd Gen 0.991 uIU/ML 06/12/17 2220 Urine Opiates Screen NEG 06/12/17 2250 Urine Barbiturates Screen NEG 06/12/17 2250 Urine Amphetamines Screen NEG 06/12/17 2250 Urine Benzodiazepines Screen NEG 06/12/17 2250 Urine Cocaine Screen NEG 06/12/17 2250 Urine Cannabinoids Screen NEG 06/12/17 2250 Ethyl Alcohol Level LESS THAN 3 MG/DL 06/12/170 Urine Color YELLOW 06/16/17 0000 Urine Turbidity CLEAR 06/16/17 0000 Urine pH 6.0 06/16/17 0000 Urine Specific [place] 1.027 06/16/17 0000 Urine Protein TRACE mg/dL 06/16/17 0000 Urine Ketones NEG mg/dL 06/16/17 0000 Urine Glucose (UA) NEG mg/dL 06/16/17 0000 Urine Nitrite NEG 06/16/17 0000 Urine Occult Blood NEG 06/16/17 0000 Urine Bilirubin NEG 06/16/17 0000 Urine Urobilinogen LESS THAN 2.0 MG/DL 06/16/17 0000 Urine Leukocyte Esterase TRACE H 06/16/17 0000 Urine RBC 1 /hpf 06/16/17 0000 Urine WBC 1 /hpf 06/16/17 0000 Urine Squamous Epithelial Cells 9 /hpf 06/16/17 0000 Urine Mucus FEW /lpf H 06/16/17 0000 Microscopic Urinalysis Comment CULT NOT INDICATED 06/16/17 0000 Summary of Procedures None done Imaging None done Pending results at discharge: No Medications # of Antipsychotic meds at D/C: 1 Approp Antipsych med options 1 - Minimum of three failed multiple trials of monotherapy. 2 - Documented plan to taper to monotherapy due to previous use of multiple meds OR cross-taper in progress at D/C. 3 - Documentation of augmentation of Clozapine. 4 - Justification other than those listed in allowable values 1-3, document here : Discharge Discharge Date: Jun 20, 2017 Discharge Diagnosis: (1) Schizoaffective disorder, bipolar type Diagnosis: Principal (improved versus admission) ICD Code: F25.0 - Schizoaffective disorder, bipolar type Pt Condition on Discharge: Stable Discharge Disposition: Discharge Home Discharge Instructions Diet Instructions: As Tolerated, No Restrictions Activities you can perform: Weight Bearing as Hever Scheduled Appointment: as per counselor's notes New Medications: Paliperidone Palmitate Inj (Invega Sustenna Inj) 156 Mg/Ml Inj 156 MG IM Q28D for Mental Health, #1 VIAL 0 Refills This dose of Invega Sustenna is due no later than 06/24/17. Trazodone (Trazodone) 50 Mg Tab 50 MG PO HS for Mental Health for 10 Days, TAB 2 Refills Trihexyphenidyl (Trihexyphenidyl) 2 Mg Tab 2 MG PO Q12HR PRN for EXTRA PYRAMIDAL SYMPTOMS for 10 Days, TAB 2 Refills Discharge Time <= 30 minutes Mental Status Examination Appearance: Appropriate, Other (poor eye contact) Consciousness: Alert Orientation: x4 Motor Activity: Other (no hand tremor, no cogwheeling, no dystonia, no dyskinesia, no other motor abnormalities noted.) Speech: Unremarkable Language: Adequate Fund of Knowledge: Adequate Attention and Concentration: Adequate Memory: Unremarkable Mood: Appropriate Affect: Blunt Thought Process & Associations: Intact, Logical, Goal directed, Linear Thought Content: Other (somatic preoccupation but generally appropriate) Hallucination Type: None Delusion Type: None Suicidal Ideation: No Suicidal Plan: No Suicidal Intention: No Homicidal Ideation: No Homicidal Plan: No Homicidal Intention: No Mental Status Exam Remarks Insight and judgment are fair Discharge/Advance Care Plan Health Problems: (1) Schizoaffective disorder, bipolar type Goals to promote your health * To prevent worsening of your condition and complications * To maintain your health at the optimal level Directions to meet your goals Take your medications as prescribed Follow your dietary instruction Follow activity as directed Keep your appointments as scheduled Take your immunizations and boosters as scheduled If your symptoms worsen call your PCP, if no PCP go to Urgent Care Center or Emergency Room For 25/10 questions related to your inpatient stay or results of tests pending at discharge, please contact Dr. Ernesto Mahmood at Smoking is Dangerous to Your Health. Avoid second hand smoking Ernesto Mahmood MD Jun 20, 2017 10:43
== END 2017-06-20 14:00 | disposition home or self-care (01) | DRG 885 ==
LOC: NEDAMB 20:09 → NEDA 06-13 18:09 → H260 06-13 20:33
PROVIDERS: ADMIT Psychiatry & Neurology Psychiatry; ATTEND Psychiatry & Neurology Psychiatry
DX: F25.0 Schizoaffective disorder, bipolar type (principal); Z91.14 Patient's other noncompliance with medication regimen
CPT/HCPCS: 80053; 80307; 81001; 84443; 84703; 85025; 99285; J2426

== ENCOUNTER 2017-07-05 06:51 | Emergency (ER) | payer MEDICAID, MEDICARE ==
[~2017-07-05] VITALS: Ht 170.2 cm; Wt 144.0 kg
[~2017-07-05 06:51] MED LIST changes: -MACR100C2 PO; +PALI156P IM; +TRIH2 PO
[2017-07-05 06:58] VITALS: BP 126/71; PULSE 85; RESP 16; TEMP 98.3; O2SAT 100
[2017-07-05 07:22] VITALS: BP 130/60; PULSE 86; RESP 17; TEMP 99; O2SAT 97
[2017-07-05] MEDS ORDERED: KETOROLAC TROMETHAMINE 30 MG/ML (IVP) VIAL IV PUSH ONE (07:30)
[2017-07-05] MEDS ORDERED: SODIUM CHLORIDE 0.9% FLUSH 10 ML FLUSH IVF PRN (07:30)
[2017-07-05 07:31] VITALS: BP 130/60; PULSE 82; RESP 17; TEMP 99; O2SAT 97
[2017-07-05 07:33] VITALS: BP_SYST 130; BP_SYST 135; BP_DIAS 60; BP_DIAS 64; PULSE 90; RESP 17; TEMP 99; O2SAT 98
--- NOTE | 2017-07-05 07:47 | RADRPT ---
EXAM DATE/TIME: 07/05/2017 07:28 [facility] COMPARISON: No previous studies available for comparison. INDICATIONS : Shortness of breath. Weakness. Numbness in arms. MEDICAL HISTORY : None. SURGICAL HISTORY : None. ENCOUNTER: Initial ACUITY: 1 day PAIN SCORE: 0/10 LOCATION: Bilateral chest FINDINGS: A single view of the chest demonstrates the lungs to be symmetrically aerated without evidence of mas s, infiltrate or effusion. The cardiomediastinal contours are unremarkable. Osseous structures are intact. CONCLUSION: Normal examination for a patient of this age. Bryon Santillan MD on July 05, 2017 at 7:46 Board Certified Radiologist. This report was verified electronically.
[2017-07-05 08:15] LABS: ALBUMIN 3.8 GM/DL (3.4-5.0); ALT (GPT) 27 U/L (10-53); AST (GOT) 17 U/L (15-37); BICARBONATE 24.4 MEQ/L (21.0-32.0); BLOOD UREA NITROGEN 6 MG/DL (7-18); CALCIUM 8.8 MG/DL (8.5-10.1); CHLORIDE 108 MEQ/L (98-107); CREATININE 0.87 MG/DL (0.50-1.00); GLOMERULAR FILTRATION RATE 95 ML/MIN (>89); GLUCOSE,RANDOM 105 MG/DL (74-106); SODIUM (NA) 140 MEQ/L (136-145)
--- NOTE | 2017-07-05 08:17 | PD ---
HPI Chief Complaint: General Weakness Time Seen by Provider: 07:18 Travel History International Travel<30 days: No Contact w/Intl Traveler<30days: No Traveled to known affect area: No History of Present Illness HPI Patient is a 27 year old female who comes in complaining of palpitations and arm weakness. She says it started last night. She believes it is related to starting a new medication, trihexyphenidyl. She denies chest pain or SOB. She says she is still feeling "fluttering" of her heart. Her mother, and POA, states that she has not been able to get her Invega due to an outdated prescription. She says she has an appointment at [facility] on July 12. Mom has multiple questions about her psychiatric diagnosis. Patient denies any other symptoms. Severity is mild to moderate. PFSH Past Medical History Asthma: Yes ( A CHILD) Bipolar Disorder: Yes Cancer: No Cardiovascular Problems: Yes (Patient states she has felt a fluttering in the heart) Developmental Delay: No Diabetes: No Diminished Hearing: No Headaches: Yes Psychiatric: Yes Immunizations Current: Yes Seizures: No Influenza Vaccination: No ?: Unknown LMP: DOES NOT REMEMBER : 0 Para: 0 Miscarriage: 0 : 0 Past Surgical History Surgical History: No Previous Surgery Social History Alcohol Use: No Tobacco Use: No Substance Use: No Allergies-Medications (Allergen,Severity, Reaction): Coded Allergies: No Known Allergies (Verified Adverse Reaction, Unknown, 07/05/17) Reported Meds & Prescriptions Reported Meds & Active Scripts Active Invega Sustenna Inj (Paliperidone Palmitate) 156 Mg/Ml Inj 156 Mg IM Q28D This dose of Invega Sustenna is due no later than 06/24/17. Trihexyphenidyl (Trihexyphenidyl HCl) 2 Mg Tab 2 Mg PO Q12HR PRN 10 Days Trazodone (Trazodone HCl) 50 Mg Tab 50 Mg PO HS 10 Days Review of Systems Except as stated in HPI: all other systems reviewed are Neg General / Constitutional: No: Fever, Chills HENT: No: Headaches, Lightheadedness Cardiovascular: Positive: Palpitations, No: Chest Pain or Discomfort Respiratory: No: Shortness of Breath Gastrointestinal: No: Nausea, Vomiting Genitourinary: No: Dysuria Musculoskeletal: No: Myalgias Skin: No Change in Pigmentation Neurologic: No: Weakness, Dizziness Physical Exam Narrative GENERAL: Awake and alert, in no acute distress. SKIN: Focused skin assessment warm/dry. HEAD: Atraumatic. Normocephalic. EYES: Pupils equal and round. No scleral icterus. EOMI. ENT: Mucous membranes pink and moist. NECK: Trachea midline. No JVD. CARDIOVASCULAR: Regular rate and rhythm. No murmur appreciated. RESPIRATORY: No accessory muscle use. Clear to auscultation. Breath sounds equal bilaterally. GASTROINTESTINAL: Abdomen soft, non-tender, nondistended. MUSCULOSKELETAL: No obvious deformities. No clubbing. No cyanosis. No edema. NEUROLOGICAL: Awake and alert. No obvious cranial nerve deficits. Motor grossly within normal limits. Normal speech. PSYCHIATRIC: Appropriate mood and affect; insight and judgment normal. Data Data Last Documented VS Vital Signs Date Time Temp Pulse Resp B/P (MAP) Pulse Ox O2 Delivery O2 Flow Rate FiO2 07/05/17 07:33 99.0 90 17 130/60 (83) 98 Room Air 135/64 (87) Orders Orders Electrocardiogram (07/05/17 07:25) Ckmb (Isoenzyme) Profile (07/05/17 07:25) Complete Blood Count With Diff (07/05/17 07:25) Comprehensive Metabolic Panel (07/05/17 07:25) D-Dimer (07/05/17 07:25) Prothrombin Time / Inr (Pt) (07/05/17 07:25) Act Partial Throm Time (Ptt) (07/05/17 07:25) Troponin I (07/05/17 07:25) Chest, Single Ap (07/05/17 07:25) Ecg Monitoring (07/05/17 07:25) Bilateral Bp Monitoring (07/05/17 07:25) Iv Access Insert/Monitor (07/05/17 07:25) Oximetry (07/05/17 07:25) Sodium Chloride 0.9% Flush (Ns Flush) (07/05/17 07:30) Ed Urine Pregnancytest Poc (07/05/17 07:25) Ketorolac Inj (Toradol Inj) (07/05/17 07:30) Ct Pulmonary Angiogram (07/05/17 09:03) Iohexol 350 Inj (Omnipaque 350 Inj) (07/05/17 09:54) Labs Laboratory Tests Test 07/05/17 07:45 07/05/17 08:17 Blood Urea Nitrogen 6 MG/DL Creatinine 0.87 MG/DL Random Glucose 105 MG/DL Total Protein 7.6 GM/DL Albumin 3.8 GM/DL Calcium Level 8.8 MG/DL Alkaline Phosphatase 69 U/L Aspartate Amino Transf (AST/SGOT) 17 U/L Alanine Aminotransferase (ALT/SGPT) 27 U/L Total Bilirubin 0.4 MG/DL Sodium Level 140 MEQ/L Potassium Level 3.4 MEQ/L Chloride Level 108 MEQ/L Carbon Dioxide Level 24.4 MEQ/L Anion Gap 8 MEQ/L Estimat Glomerular Filtration Rate 95 ML/MIN Total Creatine Kinase 87 U/L Troponin I LESS THAN 0.02 NG/ML White Blood Count 11.6 TH/MM3 Red Blood Count 4.87 MIL/MM3 Hemoglobin 13.2 GM/DL Hematocrit 38.9 % Mean Corpuscular Volume 79.9 FL Mean Corpuscular Hemoglobin 27.1 PG Mean Corpuscular Hemoglobin Concent 33.9 % Red Cell Distribution Width 13.4 % Platelet Count 247 TH/MM3 Mean Platelet Volume 9.1 FL Neutrophils (%) (Auto) 81.6 % Lymphocytes (%) (Auto) 11.2 % Monocytes (%) (Auto) 6.6 % Eosinophils (%) (Auto) 0.2 % Basophils (%) (Auto) 0.4 % Neutrophils # (Auto) 9.5 TH/MM3 Lymphocytes # (Auto) 1.3 TH/MM3 Monocytes # (Auto) 0.8 TH/MM3 Eosinophils # (Auto) 0.0 TH/MM3 Basophils # (Auto) 0.0 TH/MM3 CBC Comment DIFF FINAL Differential Comment Prothrombin Time 10.6 SEC Prothromb Time International Ratio 1.0 RATIO Activated Partial Thromboplast Time 22.6 SEC D-Dimer Quantitative (PE/DVT) 1.40 MG/L FEU [facility] Medical Decision Making Medical Screen Exam Complete: Yes Emergency Medical Condition: Yes Medical Record Reviewed: Yes Interpretation(s) ECG shows normal sinus rhythm at a rate of 89, no ST elevation or depression, sinus arrhythmia present. Differential Diagnosis Medication reaction versus electrolyte abnormality versus anxiety versus dehydration Narrative Course Patient is a 27-year-old female who comes in complaining of palpitations. Exam shows no acute abnormalities. IV established, labs sent. Labs show an elevated d-dimer, no other acute abnormalities. CTA of the chest performed shows no evidence of PE within the main arteries, he was nondiagnostic in the segmental arteries. Last [address] Angiography 07/05/17902 Signed Impressions: Service Date/Time: Wednesday, July 05, 2017 09:45 - CONCLUSION: 1. Essentially nondiagnostic pulmonary CTA examination. There is no large central main pulmonary artery thrombus. 2. Otherwise, unremarkable CT examination of the chest. Jesus Sommers MD Chest X-Ray 07/05/17724 Signed Impressions: Service Date/Time: Wednesday, July 05, 2017 07:28 - CONCLUSION: Normal examination for a patient of this age. Bryon Santillan MD Patient is not having any symptoms of PE, I believe this is related to her medication. She is advised that that medication is only for symptom control if her psychotropic medications are causing adverse reaction. Since she is currently not taking the psychotropic medication, she can hold off on this medication and discuss it with her psychiatrist at the appointment next week. Advised to keep her appointment with her psychiatrist. Advised to follow-up in the ED as needed for any worsening symptoms. Diagnosis Primary Impression: Palpitations Patient Instructions: General Instructions, Heart Palpitations (ED) Additional Instructions: Follow up with your psychiatrist. Return to the ED as needed for any worsening symptoms. Disposition: 01 DISCHARGE HOME Condition: Stable Gabrielle Mcfadden MD Jul 05, 2017 08:17
[2017-07-05 08:20] LABS: ALKALINE PHOSPHATASE 69 U/L (45-117); TOTAL BILIRUBIN ADULT 0.4 MG/DL (0.2-1.0); TOTAL PROTEIN 7.6 GM/DL (6.4-8.2); TROPONIN I LESS THAN 0.02 NG/ML (0.02-0.05)
[2017-07-05 08:34] LABS: AUTOMATED NEUTROPHIL # 9.5 TH/MM3 (1.8-7.7); BASOPHIL % 0.4 % (0.0-2.0); EOSINOPHIL % 0.2 % (0.0-4.0); HEMATOCRIT 38.9 % (35.0-46.0); HEMOGLOBIN 13.2 GM/DL (11.6-15.3); LYMPH % 11.2 % (9.0-44.0); LYMPHOCYTE # 1.3 TH/MM3 (1.0-4.8); MEAN CELL VOLUME 79.9 FL (80.0-100.0); MEAN CORPUSCULAR HEMOGLOBIN 27.1 PG (27.0-34.0); MEAN CORPUSCULAR HGB CONC 33.9 % (32.0-36.0); MEAN PLATELET VOLUME 9.1 FL (7.0-11.0); MONO % 6.6 % (0.0-8.0); MONOCYTE # 0.8 TH/MM3 (0-0.9); NEUT % 81.6 % (16.0-70.0); PLATELET COUNT 247 TH/MM3 (150-450); RED BLOOD COUNT 4.87 MIL/MM3 (4.00-5.30); RED CELL DISTRIBUTION WIDTH 13.4 % (11.6-17.2); WHITE BLOOD COUNT 11.6 TH/MM3 (4.0-11.0)
[2017-07-05 08:47] LABS: PROTHROMBIN TIME - PATIENT 10.6 SEC (9.8-11.6)
[2017-07-05 08:50] LABS: D-DIMER 1.4 MG/L FEU (0.00-0.50)
[2017-07-05] MEDS ORDERED: IOHEXOL 350 MG/ML 10 ML VIAL (for RAD DIAG) IVCONTRAST ONE (09:54)
--- NOTE | 2017-07-05 10:08 | RADRPT ---
EXAM DATE/TIME: 07/05/2017 09:45 [facility] COMPARISON: No previous studies available for comparison. INDICATIONS : General weakness. Palpitations. D-dimer = 1.40 IV CONTRAST: 75 cc Omnipaque 350 (iohexol) IV RADIATION DOSE: 10.54 CTDIvol (mGy) MEDICAL HISTORY : Asthma. SURGICAL HISTORY : None. ENCOUNTER: Initial ACUITY: 1 day PAIN SCALE: 0/10 LOCATION: chest TECHNIQUE: Volumetric scanning of the chest was performed using a pulmonary embolism protocol MIP images were re constructed. Using automated exposure control and adjustment of the mA and/or kV according to patien t size, radiation dose was kept as low as reasonably achievable to obtain optimal diagnostic quality images. DICOM format image data is available electronically for review and comparison. Follow-up recommendations for detected pulmonary nodules are based at a minimum on nodule size and pa tient risk factors according to Fleischner Society Guidelines. FINDINGS: PULMONARY ARTERIES: Examination is effectively nondiagnostic. There is no large central main pulmonary artery thrombus. LUNGS: There is no consolidation or pneumothorax . No concerning pulmonary nodule is visualized. PLEURAE: There is no pleural thickening or pleural effusion. MEDIASTINUM: There is good visualization of the great vessels of the middle mediastinum. No evidence of mediastin al or hilar adenopathy/mass. MUSCULOSKELETAL: Within normal limits for patient age. MISCELLANEOUS: The visualized upper abdominal organs demonstrate no acute abnormality. CONCLUSION: 1. Essentially nondiagnostic pulmonary CTA examination. There is no large central main pulmonary gisella ry thrombus. 2. Otherwise, unremarkable CT examination of the chest. Jesus Sommers MD on July 05, 2017 at 9:58 Board Certified Radiologist. This report was verified electronically.
[2017-07-05 11:37] VITALS: BP 138/66
--- NOTE | 2017-07-05 16:37 | EKG ---
Date Performed: 07/05/2017 Time Performed: 07:56:18 PTAGE: 27 years EKG: Sinus rhythm WITH SINUS ARRHYTHMIA Since previous tracing, no significant change noted NORMAL ECG PREVIOUS TRACING : 04/11/2017 13.14 DOCTOR: Jermaine Murrieta Interpretating Date/Time 07/05/2017 16:36:34
== END 2017-07-05 11:38 | disposition home or self-care (01) ==
LOC: NEPE 06:51
DX: R00.2 Palpitations (principal); R53.1 Weakness; I49.8 Other specified cardiac arrhythmias; J45.909 Unspecified asthma, uncomplicated; T50.995A Adverse effect of other drugs, medicaments and biological substances, initial encounter; R94.2 Abnormal results of pulmonary function studies
CPT/HCPCS: 71045; 71275; 80053; 82550; 84484; 84703; 85025; 85379; 85610; 85730; 93005; 96374; 99285; J1885; Q9967

== ENCOUNTER 2017-07-07 15:19 | Emergency (ER) | payer MEDICAID ==
[2017-07-07 15:31] VITALS: BP 135/82; PULSE 73; RESP 16; TEMP 98.6; O2SAT 100
--- NOTE | 2017-07-07 17:42 | PD ---
HPI Chief Complaint: Medical Clearance Time Seen by Provider: 17:41 Travel History International Travel<30 days: No Contact w/Intl Traveler<30days: No Traveled to known affect area: No History of Present Illness HPI 27-year-old female came to the emergency room with history of dysuria and increase urgency. However patient also says that she has some psych medications that she needs to be refilled. Patient does have psychiatric disorder and said that she needs a sleeping pill and her Risperdal that she last took 2 weeks ago. Patient does have a primary care physician. Vital signs are stable. Patient is afebrile. Patient is awake and answering questions appropriately. PFSH Past Medical History Narrative Medical List of her past medical, surgical, social and family history is reviewed from the nursing note. Asthma: Yes ( A CHILD) Bipolar Disorder: Yes Cancer: No Cardiovascular Problems: Yes (Patient states she has felt a fluttering in the heart) Developmental Delay: No Diabetes: No Diminished Hearing: No Headaches: Yes Psychiatric: Yes Immunizations Current: Yes Seizures: No : 0 Para: 0 Miscarriage: 0 : 0 Social History Alcohol Use: No Tobacco Use: No Substance Use: No Allergies-Medications (Allergen,Severity, Reaction): Coded Allergies: No Known Allergies (Verified Adverse Reaction, Unknown, 07/05/17) Comments No known drug allergies. Reported Meds & Prescriptions Reported Meds & Active Scripts Active Macrobid (Nitrofurantoin Monoh/Nitrofur Macro) 100 Mg Cap 100 Mg PO BID 7 Days Invega Sustenna Inj (Paliperidone Palmitate) 156 Mg/Ml Inj 156 Mg IM Q28D This dose of Invega Sustenna is due no later than 06/24/17. Trihexyphenidyl (Trihexyphenidyl HCl) 2 Mg Tab 2 Mg PO Q12HR PRN 10 Days Trazodone (Trazodone HCl) 50 Mg Tab 50 Mg PO HS 10 Days Narrative Medication List of her home medications reviewed from the nursing note. Review of Systems Except as stated in HPI: all other systems reviewed are Neg Genitourinary: Positive: Urgency, Dysuria Physical Exam Narrative GENERAL:, No obvious distress, morbidly obese SKIN: Focused skin assessment warm/dry. HEAD: Atraumatic. Normocephalic. EYES: Pupils equal and round. No scleral icterus. No injection or drainage. ENT: No nasal bleeding or discharge. Mucous membranes pink and moist. NECK: Trachea midline. No JVD. CARDIOVASCULAR: Regular rate and rhythm. No murmur appreciated. RESPIRATORY: No accessory muscle use. Clear to auscultation. Breath sounds equal bilaterally. GASTROINTESTINAL: Abdomen soft, non-tender, nondistended. Hepatic and splenic margins not palpable. MUSCULOSKELETAL: No obvious deformities. No clubbing. No cyanosis. No edema. NEUROLOGICAL: Awake and alert. No obvious cranial nerve deficits. Motor grossly within normal limits. Normal speech. PSYCHIATRIC: Appropriate mood and affect; insight and judgment normal. Data Data Last Documented VS Vital Signs Date Time Temp Pulse Resp B/P (MAP) Pulse Ox O2 Delivery O2 Flow Rate FiO2 07/07/17 15:31 98.6 73 16 135/82 (99) 100 Orders Orders Urinalysis - C+S If Indicated (07/07/17 15:37) Urine Culture (07/07/17 16:03) Nitrofurantoin Monohyd Macrocr (Macrobid (07/07/17 19:15) Ed Urine Pregnancytest Poc (07/07/17 19:14) Ed Discharge Order (07/07/17 19:47) Labs Laboratory Tests Test 07/07/17 17:29 Urine Color YELLOW Urine Turbidity CLEAR Urine pH 6.5 Urine Specific [place] 1.010 Urine Protein TRACE mg/dL Urine Glucose (UA) NEG mg/dL Urine Ketones 40 mg/dL Urine Occult Blood LARGE Urine Nitrite NEG Urine Bilirubin NEG Urine Urobilinogen LESS THAN 2.0 MG/DL Urine Leukocyte Esterase SMALL Urine RBC /hpf Urine WBC 28 /hpf Urine Squamous Epithelial Cells 1 /hpf Urine Bacteria RARE /hpf Urine Mucus FEW /lpf Microscopic Urinalysis Comment CULTURE INDICATED MDM Medical Decision Making Medical Screen Exam Complete: Yes Emergency Medical Condition: Yes Medical Record Reviewed: Yes Differential Diagnosis UTI, psychiatric disorder Narrative Course 7:49 PM UA was positive for UTI. She was given a dose of Macrobid and prescription to go home with. Urine is negative. I have asked her to call her primary care physician and get the prescription refills from the primary care. Patient will be discharged home. Procedures EKG Prior to Arrival: No Diagnosis Primary Impression: UTI (urinary tract infection) Qualified Codes: N39.0 - Urinary tract infection, site not specified; R31.9 - Hematuria, unspecified Additional Instructions: Take the medication as per the prescription direction. Please follow-up with your primary care regarding the rest of your prescription refills. Return to the emergency room if the condition worsens or any other new concerns. Med/Other Pt SpecificInfo: Prescription(s) given Scripts Nitrofurantoin Monohydrate Macrocrystals (Macrobid) 100 Mg Cap 100 MG PO BID for Infection for 7 Days, #14 CAP 0 Refills Prov: Chip Lawrence MD 07/07/17 Disposition: 01 DISCHARGE HOME Condition: Stable Chip Lawrence MD Jul 07, 2017 17:42
[2017-07-07 19:07] LABS: BACTERIA, URINE RARE /hpf; BILIRUBIN, URINE NEG (NEG); BLOOD, URINE LARGE (NEG); GLUCOSE,URINE NEG (NEG); KETONE, URINE 40 mg/dL (NEG); MUCUS URINE FEW /lpf (OCC); NITRITE,URINE NEG (NEG); PH, URINE 6.5 (5.0-8.5); SQUAMOUS EPITHELIAL CELL URINE 1 /hpf (0-5); URINE COLOR YELLOW (YELLW/STRAW); URINE LEUKOCYTE ESTERASE SMALL (NEG)
[2017-07-07] MEDS ORDERED: NITROFURANTOIN MONOHYD MACROCR 100 MG CAP PO ONE (19:15)
[2017-07-07] MEDS ORDERED: MACR100C2 PO (19:39)
== END 2017-07-07 19:55 | disposition home or self-care (01) ==
LOC: NEPD 15:19
DX: N39.0 Urinary tract infection, site not specified (principal); F31.9 Bipolar disorder, unspecified; J45.909 Unspecified asthma, uncomplicated
CPT/HCPCS: 81001; 84703; 87086; 99283

== ENCOUNTER 2017-07-24 21:40 | Emergency (ER) | payer MEDICAID ==
[~2017-07-24 21:40] MED LIST changes: +MACR100C2 PO
[2017-07-25] MEDS ORDERED: RISP3 PO (03:29)
== END 2017-07-24 22:00 | disposition left against medical advice (07) ==
LOC: NED 21:40
DX: R68.89 Other general symptoms and signs (principal)
CPT/HCPCS: 99281

== ENCOUNTER 2017-07-25 03:10 | Emergency (ER) | payer MEDICAID ==
[2017-07-25 03:14] VITALS: BP 108/67; PULSE 96; RESP 19; TEMP 98.7; O2SAT 97
[2017-07-25] MEDS ORDERED: RISP3 PO (03:29)
--- NOTE | 2017-07-25 03:41 | PD ---
HPI Chief Complaint: Abdominal Pain Time Seen by Provider: 03:30 Travel History International Travel<30 days: No Contact w/Intl Traveler<30days: No Traveled to known affect area: No History of Present Illness HPI The patient is a 27 year old female who presents to the [facility] emergency department with a history of abdominal that began 3 months ago. She reports that the abdominal pain is an aching sensation. She reports that the pain is coming and going. She reports that the pain is in the center of the abdomen. She has had associated intermittent diarrhea. She denies any blood in her stool. Her last BM was this AM. She reports having nausea, however no vomiting associated with this. She denies having any dysuria, hem, neck pain, chest pain, shortness of breath, vaginal discharge, or neurologic symptoms. PCP: Dr. Jakob Simpson. She is not sure when she last saw him. LMP: 07/03/2017 [facility] Past Medical History Narrative Medical The patient's past medical history is reportedly significant for bipolar disorder. Asthma: Yes ( A CHILD) Bipolar Disorder: Yes Cancer: No Cardiovascular Problems: Yes (Patient states she has felt a fluttering in the heart) Developmental Delay: No Diabetes: No Diminished Hearing: No Headaches: Yes Psychiatric: Yes Immunizations Current: Yes Seizures: No ?: Not LMP: 07/03/2017 : 0 Para: 0 Miscarriage: 0 : 0 Past Surgical History Narrative Surgical The patient's past surgical history is reported none. Social History Alcohol Use: No Tobacco Use: No Substance Use: No Allergies-Medications (Allergen,Severity, Reaction): Coded Allergies: carbamazepine (Verified Allergy, Intermediate, hives, 07/25/17) Reported Meds & Prescriptions Reported Meds & Active Scripts Active Trazodone (Trazodone HCl) 50 Mg Tab 50 Mg PO HS 10 Days Reported Risperdal (Risperidone) 3 Mg Tab 3 Mg PO HS Review of Systems Except as stated in HPI: all other systems reviewed are Neg General / Constitutional: No: Fever Eyes: No: Visual changes HENT: Positive: Rhinitis, Rhinorrhea, Congestion, No: Headaches, Sore Throat Cardiovascular: No: Chest Pain or Discomfort Respiratory: No: Shortness of Breath Gastrointestinal: Positive: Nausea, Diarrhea, Abdominal Pain, Changes in Bowel Habits, No: Vomiting, Indigestion Genitourinary: No: Dysuria Musculoskeletal: No: Pain Skin: No Rash Neurologic: No: Weakness Psychiatric: No: Depression Endocrine: No: Polydipsia Hematologic/Lymphatic: No: Easy Bruising Physical Exam Narrative General: The patient is a well-developed well-nourished female in no acute distress. Head and Neck exam: Head is normocephalic atraumatic. Eyes: EOMI, pupils are equal round and reactive to light. Nose: Midline septum with pink mucous membranes Mouth: Dentition unremarkable. Moist mucus membranes. Posterior oropharynx is not erythematous. No tonsillar hypertrophy. Uvula midline. Airway patent. Neck: No palpable lymphadenopathy. No nuchal rigidity. No thyromegaly. Cardiovascular: Regular rate and rhythm without murmurs, gallops, or rubs. No pulse deficit to the extremities. Lungs: Clear to auscultation bilaterally. No wheezes, rhonchi, or rales. Abdomen: Soft, with reported tenderness on palpation in the midepigastric area, no other tenderness on palpation of the other quadrants of the abdomen.. No guarding, rebound, or rigidity. Negative Marsh sign. No tenderness on palpation of McBurney's point. Normal bowel sounds are audible. Extremities: No clubbing, cyanosis, or edema. 2+ pulses in all 4 extremities. No calf tenderness on palpation. Back: No spinous process tenderness to palpation. No costovertebral angle tenderness to palpation. Neurologic Exam: Grossly nonfocal. Skin Exam: No rash noted. Intact skin that is warm and dry. Data Data Last Documented VS Vital Signs Date Time Temp Pulse Resp B/P (MAP) Pulse Ox O2 Delivery O2 Flow Rate FiO2 07/25/17 03:14 98.7 96 19 108/67 (81) 97 Orders Orders Complete Blood Count With Diff (07/25/17 03:45) Comprehensive Metabolic Panel (07/25/17 03:45) C-Reactive Protein (Crp) (07/25/17 03:45) Lipase (07/25/17 03:45) Urinalysis - C+S If Indicated (07/25/17 03:45) Iv Access Insert/Monitor (07/25/17 03:45) Ecg Monitoring (07/25/17 03:45) Oximetry (07/25/17 03:45) Ed Urine Pregnancytest Poc (07/25/17 03:45) Sodium Chlor 0.9% 1000 Ml Inj (Ns 1000 M (07/25/17 03:45) Ondansetron Inj (Zofran Inj) (07/25/17 03:45) Famotidine Inj (Pepcid Inj) (07/25/17 04:00) Labs Laboratory Tests Test 07/25/17 04:06 Urine Color LIGHT-YELLOW Urine Turbidity CLEAR Urine pH 6.5 Urine Specific [place] 1.001 Urine Protein NEG mg/dL Urine Glucose (UA) NEG mg/dL Urine Ketones NEG mg/dL Urine Occult Blood NEG Urine Nitrite NEG Urine Bilirubin NEG Urine Urobilinogen LESS THAN 2.0 MG/DL Urine Leukocyte Esterase TRACE Urine RBC 1 /hpf Urine WBC 1 /hpf Urine Squamous Epithelial Cells 2 /hpf Urine Bacteria RARE /hpf Microscopic Urinalysis Comment CULT NOT INDICATED MDM Medical Decision Making Medical Screen Exam Complete: Yes Emergency Medical Condition: Yes Medical Record Reviewed: Yes Differential Diagnosis Peptic ulcer disease, versus gastritis, versus pancreatitis, versus somatization Narrative Course During the course of the patient's emergency department visit, the patient's history, examination, and differential diagnosis were reviewed with the patient. The patient was placed on a shelter monitor with oximetry and frequent blood pressure monitoring. The patient had IV access written to be obtained along with blood studies, however according to the patient's nurse the patient decided against having laboratory studies done other than a urinalysis. She reported that she prefers to follow-up with her primary care physician. The patient was recently seen in the hospital and had laboratory studies done when she had similar complaints. The patient's laboratory studies were reviewed and remarkable for a urinalysis that is unremarkable. The patient's symptoms have been ongoing for the last 3 months. She prefers to have laboratory studies done with her primary care physician. I did recommend that she call his office in the morning to schedule appointment and follow-up in the next 2 days. She was instructed to follow back up immediately in the emergency department if she develops any new or worsening symptoms. The patient is resting comfortably and feels better, is alert and in no distress. The patient's results and examination findings were discussed with the patient. The repeat examination is unremarkable and benign. The history, exam, diagnostic testing, and current condition do not suggest any significant pathology to warrant further testing, continued ED treatment, admission, or surgical evaluation at this point. The vital signs have been stable. The patient does not have uncontrollable pain, intractable vomiting, or other significant symptoms. The patient's condition is stable and appropriate for discharge. The patient will pursue further outpatient evaluation with a primary care physician or other designated or consulting physician as indicated in the discharge instructions. The patient expressed understanding and was agreeable with this plan. Diagnosis Primary Impression: Abdominal pain Qualified Codes: R10.13 - Epigastric pain Referrals: Primary Care Physician 2 days Patient Instructions: Abdominal Pain (ED), General Instructions Med/Other Pt SpecificInfo: No Change to Meds Disposition: 01 DISCHARGE HOME Condition: Stable Dyan Perez MD Jul 25, 2017 03:41
[2017-07-25] MEDS ORDERED: ONDANSETRON HCL 4 MG/2 ML VIAL IV ONE (03:45)
[2017-07-25] MEDS ORDERED: SODIUM CHLOR 0.9% 1000 ML INJ 1,000 ML IV ONE (03:45)
[2017-07-25] MEDS ORDERED: FAMOTIDINE 20 MG/2 ML VIAL IV PUSH SCH (04:00)
[2017-07-25 04:17] LABS: BACTERIA, URINE RARE /hpf; BILIRUBIN, URINE NEG (NEG); BLOOD, URINE NEG (NEG); GLUCOSE,URINE NEG (NEG); KETONE, URINE NEG (NEG); NITRITE,URINE NEG (NEG); PH, URINE 6.5 (5.0-8.5); SQUAMOUS EPITHELIAL CELL URINE 2 /hpf (0-5); URINE COLOR LIGHT-YELLOW (YELLW/STRAW); URINE LEUKOCYTE ESTERASE TRACE (NEG)
== END 2017-07-25 04:55 | disposition home or self-care (01) ==
LOC: NEPC 03:10
DX: R10.13 Epigastric pain (principal); R11.0 Nausea; R19.7 Diarrhea, unspecified; F31.9 Bipolar disorder, unspecified; Z88.8 Allergy status to other drugs, medicaments and biological substances; Z79.899 Other long term (current) drug therapy
CPT/HCPCS: 81001; 84703; 99283